=== PATIENT | female | born 1955 | race Caucasian/White ===

== ENCOUNTER → 2017-12-04 14:31 | Outpatient (REF) | payer MEDICAID, SELFPAY ==
[2017-12-04 21:52] LABS: Ferritin 77 ng/mL (8-388); Vitamin B12 929 pg/mL (193-986)
[2017-12-04 21:57] LABS: Folate > 20.0 ng/mL (8.6-20.0)
== END ==
LOC: NCHCN 14:31
PROVIDERS: PCP Physician Assistant Medical; Visit Provider Physician Assistant Medical
DX: D64.9 Anemia, unspecified (principal)
CPT/HCPCS: 82607; 82728; 82746

== ENCOUNTER → 2017-12-13 09:24 | Outpatient (CLI) | payer MEDICAID, SELFPAY ==
[2017-12-13 10:20] LABS: Abs Immature Grans 0.02 k/cumm (0.0-0.09); Absolute Basophil Count 0.02 k/cumm (0.0-0.2); Absolute Lymphocyte Count 2.16 k/cumm (1.2-3.4); Absolute Monocyte Count 0.62 k/cumm (0.11-0.7); Absolute Neutrophil Count 4.48 k/cumm (1.2-6.7); Basophils % 0.3; HCT 35.6 % (36.0-46.0); HGB 11.4 g/dL (12.0-15.5); Immature Grans % 0.3; Lymphocytes % 29.6; Mean Corpuscular Hemoglobin 31.6 pg (27.0-33.0); Mean Corpuscular Volume 98.6 fL (80-95); Mean Platelet Volume 10.8 fL (8.0-11.0); Monocytes % 8.5; Neutrophils % 61.3; Platelet Count 188 x1000/uL (130-400); RBC 3.61 m/cumm (4.00-5.20); RBC Distribution Width 13.5 % (11.7-14.6)
== END ==
PROVIDERS: PCP Physician Assistant Medical; Visit Provider Nurse Practitioner
DX: F20.9 Schizophrenia, unspecified (principal); Z79.899 Other long term (current) drug therapy
CPT/HCPCS: 36415; 85025

== ENCOUNTER 2018-01-03 13:00 | Outpatient (RCR) | payer MEDICAID, SELFPAY ==
--- NOTE | 2017-12-25 15:18 | IE_ITS ---
Date: December 25, 2017 Referring: Joan Nobles PA-C M.D. Diagnosis: neck and back pain P.T. Diagnosis: difficulty changing positions SUBJECTIVE: History of Present Illness: The patient describes herself as a disabled woman due to Schizo Affective Disorder since the early . She states she currently has a very active life. She does [employer] dance and tries to be involved in a book club. She tries to get out and walk as much as possible. She states that years ago she was lifting an air conditioner and injured her back. A couple years later she was painting her ceiling and injured her neck. She has had P.T. and acupuncture for both of these areas, and for the most part has kept it in check. Recently, she is noticing increased pain at both locations. The pain has never completely dissipated. It is located on the right side of the neck, and she has pain on both sides of the back. There does not seem to be any referral associated with either the back or neck pain. No bowel or bladder dysfunction reported. No unexplained weight loss. She has lost 22# due to [employer], and is very encouraged about this. Pain Rating: Currently 6/10 Prior Level of Function: Unrestricted. Current Level of Function: Difficulty moving and changing positions. Difficulty with every day chores. They become a little more labored. Previous Treatment: P.T. and acupuncture. Social: She lives in [place], [place]. Comorbidities: Schizo Affective Disorder, hypo thyroidism and kidney disorder Medications: See patient EMR. Quality of Life: __x__ Excellent Standardized Measures: NDI score: __42%__ OBJECTIVE: Posture: In standing, the patient demonstrates a significant increase in upper thoracic kyphosis and moderate forward head position. Also, noted is scapular protraction bilaterally. Gait: Unremarkable. No evidence of severe antalgia or ataxia. Palpation: She is tender to palpation through the right side of the cervical paraspinals and into the QL bilaterally and lumbar paraspinals bilaterally. A SFMA Top Tier Assessment was completed, dysfunctional non painful patterns with cervical spine motions, UE 1, UE 2 patterns bilaterally, multi segmental rotation, multi segmental extension and multi segmental flexion appears to be functional and non painful. Arms down, deep squat dysfunctional non painful. Single leg stance with eyes closed is dysfunctional non painful. ROM: Multi segmental extension of the spine 25% of normal motion, cervical extension 50% of normal motion, cervical flexion 50% of normal motion, cervical rotation 50% of normal motion, C1/C2 rotation was assessed passively and appears to be within 100% of normal motion indicating a restriction through the lower cervical vertebrae, hip flexion WNL, hip internal and external rotation WNL, and knee extension and flexion WNL. 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 Neuro: Sensation is intact to light touch through upper and lower extremity dermatomes. Motor control appears intact through associated myotomes. Patient demonstrates appropriate proprioception and kinestatic awareness. Special Tests: Lumbar lock test (+) for extension and rotation limitations through the thoracic spine. SLR limited by hamstring extensibility to 45 bilaterally. Josh test (+) bilaterally. Treatment: IE: [id number] x1 Patient Education: I.E. and assessment of functional mobility as well as training in a formal exercise program. The patient demonstrated verbal acknowledgement and technique demonstration. Direct treatment time: 60 minutes Total treatment time: 60 minutes ASSESSMENT: Patient is a 62-year-old female with a history of chronic health conditions affecting her function, referred for PT services with the diagnosis of cervical and back pain. Patient presents with clinical signs and symptoms consistent with mechanical derangement due to movement pattern dysfunction through the thoracic spine, as demonstrated by the following impairment level findings: 1) (+) lumbar lock test with thoracic spine rotation and extension limitations 2) (+) postural abnormalities with increased thoracic kyphosis 3) (+) Josh test 4) (+) SLR for hamstring extensibility issues Impairments are contributing to the following functional limitations: 1) difficulty with every day tasks and activities due to pain Patient is assessed as: __x__ Low 19264 complexity, based on the following: History: (list): Schizo Affective Disorder, hypo thyroid and kidney disorders Examination: (list): (+) thoracic spine restrictions with both extension and rotation, SLR and hamstring extensibility issues, (+) Josh test Presentation: Stable Decision-Making: Low complexity based on the NDI with 42% ____ Patient requires skilled PT intervention to remediate the above functional limitations to return to: __x__ Premorbid level of function Prognosis: __x__ Good As evidence suggest improvement in functional mobility with compliancy to a detailed HEP tailored to her diagnosis and follow through with P.T. intervention. STG: __2__ weeks. 1) patient independent with HEP both verbally and with ideal technique demonstration LTG: __6__ weeks. 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 Treatment to include: Manual therapy - 92525 - enhancing muscle extensibility and improving joint mobility through the thoracic spine Therapeutic exercise - 19557 - providing tactile cues, verbal education and advanced movement corrective for establishing stability and motor control through the core and pelvic girdle influencing more refined body mechanics. Ultrasound (36233) and estim (41818) are available for pain modulation as necessary. The patient will be monitored for compliancy to her HEP, and her status will be updated accordingly. POC will be modified as symptoms dictate. Thank you for this referral. Please do not hesitate to contact me with any questions or concerns regarding this patient's plan of care.
--- NOTE | 2017-12-27 14:39 | PTTR_ITS ---
DATE: 12/27/17 SUBJECTIVE: Caitie stating that she has been doing her exercises that she was given last session. She thinks she is actually more sore than she was before. She is wondering if this is normal. She notes feeling discomfort into the right shoulder, right sided neck and right sided low back. OBJECTIVE: Discussion regarding HEP and appropriate completion. She will continue with her home program and try doing her exercises one time per day for a few days to ease into them. Pt is in agreement with this. Manual therapy: ([id number]). Pt receives flexion based stretching bilateral LE' s. Begin with unloading techniques to the lumbar spine via single and double leg pull. Single knee to chest stretch, hamstring, piriformis stretching. Mulligan SLR applied bilaterally. Perform double knee to chest stretch and lumbar rotation with good tolerance. She receives unloading of her cervical spine and PROM and light stretching into side bend and rotation bilaterally. In prone position PA glides applied to the lumbar and thoracic spine. Therapeutic procedures ([id number]). * X HEP review: Review and progress HEP. 1. Diaphragmatic breathing, 5 breath cycles 2. Diaphragmatic breathing, PPT and Kegel activation 5 breath cycles 3. Diaphragmatic breathing, PPT and Kegel activation with deep neck flexor retraction 5 breath cycles. Performed series of intrinsic stabilization activities here in the clinic and pt was provided with handout with exercises written down for her. She requires verbal and tactile cueing for appropriate completion. Direct treatment time: 30 minutes Total treatment time: 30 minutes Rosy Cano PTA
--- NOTE | 2017-12-30 12:42 | PTTR_ITS ---
DATE: 12/30/17 SUBJECTIVE: Pt states that she is doing ok for the most part. She is trying to do her exercises as faithfully as possible. She would just like them checked. OBJECTIVE: Manual therapy: ([id number]).Pt was re-evaluated in her exercise compliance. Minor modifications noted.She is then placed in prone, where she is mobilized with PA glides through the thoracic spine utilizing grade II distribution of strength initially for mechanoreceptor stimulation.She is then lowered through the cervical spine to incorporate about 20 degrees of cervical flexion, and from this point more aggressive grade III mobilizations are applied through the thoracic spine. She is then mobilized with hip extension coordinated with knee flexion to mobilize the rectus femoris, which she tolerates fairly well, although there is still a 10 in. difference from heel to buttock. Pt was then placed in supine and mobilized through the cervical spine with light oscillatory traction corrected into cervical retraction and then mobilized utilizing sustained natural apophysial glide to end of range rotation bilaterally and light mini arc extensions. STM to the cervical paraspinals at the end of the treatment session. Pt tolerated treatment well. Direct treatment time: 30 min Total treatment time: 30 min direct pt care NELL/tuyet
--- NOTE | 2018-01-03 14:24 | PTTR_ITS ---
DATE: 01/03/18 SUBJECTIVE: Caitie stating that she was sore after last visit. She continues to be sore through her neck and low back. She notes she has been doing her exercises. OBJECTIVE: Manual therapy: ([id number]): Pt in supine position receives unloading of her cervical spine followed by PROM and stretching into sidebending and rotation bilaterally. She tolerates approx. 75% available motion bilaterally. She receives OA release and STM techniques to bilateral upper traps, scalenes, SCM and cervical paraspinals. Tone noted bilateral upper cervical paraspinals and scalenes bilaterally and clear trigger points here. In prone position perform PA glides to the lumbar and thoracic segments and strumming the lumbar paraspinals. She then receives stretching to the quads and hip flexors bilaterally. Ends with moist hot pack in the seated position to the entire back and neck x 10 minutes. Direct treatment time: 30 minutes Total treatment time: 40 minutes Rosy Cano, CLOSING AGENT
== END 2018-01-03 23:59 | disposition home or self-care (01) ==
LOC: PT 13:00
PROVIDERS: PCP Physician Assistant Medical; Referring Provider Physician Assistant Medical; Visit Provider Physician Assistant Medical
DX: M54.2 Cervicalgia (principal); M54.6 Pain in thoracic spine
CPT/HCPCS: 97110; 97140; 97161

== ENCOUNTER → 2018-01-03 14:39 | Outpatient (CLI) | payer MEDICAID, SELFPAY ==
[2018-01-03 15:02] LABS: Abs Immature Grans 0.02 k/cumm (0.0-0.09); Absolute Basophil Count 0.03 k/cumm (0.0-0.2); Absolute Lymphocyte Count 2.28 k/cumm (1.2-3.4); Absolute Monocyte Count 0.39 k/cumm (0.11-0.7); Absolute Neutrophil Count 3.28 k/cumm (1.2-6.7); Basophils % 0.5; HCT 35.8 % (36.0-46.0); HGB 11.6 g/dL (12.0-15.5); Immature Grans % 0.3; Mean Corp. HGB Concentration 32.4 g/dL (32.0-36.0); Mean Corpuscular Hemoglobin 31.8 pg (27.0-33.0); Mean Corpuscular Volume 98.1 fL (80-95); Mean Platelet Volume 10.4 fL (8.0-11.0); Monocytes % 6.5; Neutrophils % 54.7; Platelet Count 171 x1000/uL (130-400); RBC 3.65 m/cumm (4.00-5.20); RBC Distribution Width 13.5 % (11.7-14.6)
== END ==
PROVIDERS: PCP Physician Assistant Medical; Visit Provider Nurse Practitioner
DX: F20.9 Schizophrenia, unspecified (principal); Z79.899 Other long term (current) drug therapy
CPT/HCPCS: 36415; 85025

== ENCOUNTER 2018-01-30 15:16 | Outpatient (CLI) | payer MEDICAID, SELFPAY ==
[2018-01-30 15:33] LABS: Abs Immature Grans 0.01 k/cumm (0.0-0.09); Absolute Basophil Count 0.02 k/cumm (0.0-0.2); Absolute Lymphocyte Count 2.16 k/cumm (1.2-3.4); Absolute Monocyte Count 0.57 k/cumm (0.11-0.7); Absolute Neutrophil Count 4.88 k/cumm (1.2-6.7); Basophils % 0.3; HCT 34.2 % (36.0-46.0); Immature Grans % 0.1; Lymphocytes % 28.3; Mean Corp. HGB Concentration 32.2 g/dL (32.0-36.0); Mean Corpuscular Hemoglobin 31.7 pg (27.0-33.0); Mean Corpuscular Volume 98.6 fL (80-95); Mean Platelet Volume 10.2 fL (8.0-11.0); Monocytes % 7.5; Neutrophils % 63.8; Platelet Count 181 x1000/uL (130-400); RBC 3.47 m/cumm (4.00-5.20); RBC Distribution Width 13.6 % (11.7-14.6); White Blood Cell Count 7.64 k/cumm (4.4-10.8)
== END 2018-01-30 15:36 ==
PROVIDERS: PCP Physician Assistant Medical; Visit Provider Nurse Practitioner
DX: F20.9 Schizophrenia, unspecified (principal); Z79.899 Other long term (current) drug therapy
CPT/HCPCS: 36415; 85025

== ENCOUNTER 2018-02-27 12:37 | Outpatient (CLI) | payer MEDICAID, SELFPAY ==
[2018-02-27 13:02] LABS: Abs Immature Grans 0.01 k/cumm (0.0-0.09); Absolute Basophil Count 0.03 k/cumm (0.0-0.2); Absolute Lymphocyte Count 1.81 k/cumm (1.2-3.4); Absolute Monocyte Count 0.59 k/cumm (0.11-0.7); Absolute Neutrophil Count 3.47 k/cumm (1.2-6.7); Basophils % 0.5; HCT 37.8 % (36.0-46.0); HGB 11.8 g/dL (12.0-15.5); Immature Grans % 0.2; Lymphocytes % 30.6; Mean Corp. HGB Concentration 31.2 g/dL (32.0-36.0); Mean Corpuscular Hemoglobin 30.9 pg (27.0-33.0); Mean Platelet Volume 10.9 fL (8.0-11.0); Neutrophils % 58.7; Platelet Count 175 x1000/uL (130-400); RBC 3.82 m/cumm (4.00-5.20); RBC Distribution Width 13.9 % (11.7-14.6); White Blood Cell Count 5.91 k/cumm (4.4-10.8)
== END 2018-02-27 12:57 ==
PROVIDERS: PCP Physician Assistant Medical; Visit Provider Nurse Practitioner
DX: F20.9 Schizophrenia, unspecified (principal); Z79.899 Other long term (current) drug therapy
CPT/HCPCS: 36415; 85025

== ENCOUNTER 2018-03-25 10:17 | Outpatient (CLI) | payer MEDICAID, SELFPAY ==
[2018-03-25 11:02] LABS: Abs Immature Grans 0.01 k/cumm (0.0-0.09); Absolute Basophil Count 0.03 k/cumm (0.0-0.2); Absolute Lymphocyte Count 1.51 k/cumm (1.2-3.4); Absolute Monocyte Count 0.54 k/cumm (0.11-0.7); Absolute Neutrophil Count 3.59 k/cumm (1.2-6.7); Basophils % 0.5; HCT 37.5 % (36.0-46.0); HGB 11.8 g/dL (12.0-15.5); Immature Grans % 0.2; Lymphocytes % 26.6; Mean Corp. HGB Concentration 31.5 g/dL (32.0-36.0); Mean Corpuscular Hemoglobin 30.7 pg (27.0-33.0); Mean Corpuscular Volume 97.7 fL (80-95); Mean Platelet Volume 11.3 fL (8.0-11.0); Monocytes % 9.5; Neutrophils % 63.2; Platelet Count 162 x1000/uL (130-400); RBC 3.84 m/cumm (4.00-5.20); RBC Distribution Width 13.7 % (11.7-14.6); White Blood Cell Count 5.68 k/cumm (4.4-10.8)
== END 2018-03-25 10:37 ==
PROVIDERS: PCP Nurse Practitioner Family; Visit Provider Nurse Practitioner
DX: F20.9 Schizophrenia, unspecified (principal); Z79.899 Other long term (current) drug therapy
CPT/HCPCS: 36415; 85025

== ENCOUNTER 2018-04-21 14:34 | Outpatient (CLI) | payer MEDICAID, SELFPAY ==
[2018-04-21 14:56] LABS: Abs Immature Grans 0.01 k/cumm (0.0-0.09); Absolute Basophil Count 0.03 k/cumm (0.0-0.2); Absolute Lymphocyte Count 2.19 k/cumm (1.2-3.4); Absolute Monocyte Count 0.42 k/cumm (0.11-0.7); Absolute Neutrophil Count 3.25 k/cumm (1.2-6.7); Basophils % 0.5; HCT 37.4 % (36.0-46.0); HGB 11.9 g/dL (12.0-15.5); Immature Grans % 0.2; Lymphocytes % 37.1; Mean Corp. HGB Concentration 31.8 g/dL (32.0-36.0); Mean Corpuscular Hemoglobin 31.2 pg (27.0-33.0); Mean Corpuscular Volume 97.9 fL (80-95); Mean Platelet Volume 11.2 fL (8.0-11.0); Monocytes % 7.1; Neutrophils % 55.1; Platelet Count 165 x1000/uL (130-400); RBC 3.82 m/cumm (4.00-5.20)
== END 2018-04-21 14:54 ==
PROVIDERS: PCP Nurse Practitioner Family; Visit Provider Nurse Practitioner
DX: F20.9 Schizophrenia, unspecified (principal); Z79.899 Other long term (current) drug therapy
CPT/HCPCS: 36415; 85025

== ENCOUNTER 2018-04-24 14:53 | Outpatient (REF) | payer MEDICAID, SELFPAY ==
[2018-04-24 21:43] LABS: ALT 33 U/L (12-78); AST 17 U/L (15-37); Albumin 3.9 g/dL (3.4-5.0); Alkaline Phosphatase 69 U/L (46-116); Anion Gap 6.4 mmol/L (3-11); BUN 20 mg/dL (7-18); Bilirubin, Total 0.4 mg/dL (0.2-1.0); CO2 32.6 mmol/L (21.0-32.0); CREATININE 1.43 mg/dL (0.55-1.02); Calcium 10.3 mg/dL (8.5-10.1); Chloride 105 mmol/L (98-107); Estimated GFR 36.94 (mL/min/1.73m2); Glucose 125 mg/dL (70-100); Magnesium 2.1 mg/dL (1.8-2.4); Potassium 3.5 mmol/L (3.5-5.1); Sodium 144 mmol/L (136-145); TSH (W/Ref FT4) 0.99 uIU/mL (0.358-3.74); Total Protein 6.6 g/dL (6.4-8.2)
== END 2018-04-24 15:13 ==
LOC: NCHCN 14:53
PROVIDERS: PCP Nurse Practitioner Family; Visit Provider Specialist/Technologist Athletic Trainer
DX: E03.9 Hypothyroidism, unspecified (principal); R94.4 Abnormal results of kidney function studies; Z79.899 Other long term (current) drug therapy
CPT/HCPCS: 80053; 83735; 84443

== ENCOUNTER 2018-05-27 12:47 | Outpatient (CLI) | payer MEDICAID, SELFPAY ==
[2018-05-27 14:03] LABS: Abs Immature Grans 0.01 k/cumm (0.0-0.09); Absolute Basophil Count 0.03 k/cumm (0.0-0.2); Absolute Lymphocyte Count 1.87 k/cumm (1.2-3.4); Absolute Monocyte Count 0.47 k/cumm (0.11-0.7); Absolute Neutrophil Count 3.32 k/cumm (1.2-6.7); Basophils % 0.5; HCT 38.5 % (36.0-46.0); HGB 12.4 g/dL (12.0-15.5); Immature Grans % 0.2; Lymphocytes % 32.8; Mean Corp. HGB Concentration 32.2 g/dL (32.0-36.0); Mean Corpuscular Hemoglobin 31.2 pg (27.0-33.0); Mean Platelet Volume 11.4 fL (8.0-11.0); Monocytes % 8.2; Neutrophils % 58.3; Platelet Count 203 x1000/uL (130-400); RBC 3.97 m/cumm (4.00-5.20); RBC Distribution Width 14.6 % (11.7-14.6)
== END 2018-05-27 13:07 ==
PROVIDERS: PCP Nurse Practitioner Family; Visit Provider Nurse Practitioner
DX: F20.9 Schizophrenia, unspecified (principal); Z79.899 Other long term (current) drug therapy
CPT/HCPCS: 36415; 85025

== ENCOUNTER 2018-06-24 15:15 | Outpatient (CLI) | payer MEDICAID, SELFPAY ==
[2018-06-24 16:06] LABS: Abs Immature Grans 0.01 k/cumm (0.0-0.09); Absolute Basophil Count 0.03 k/cumm (0.0-0.2); Absolute Lymphocyte Count 2.52 k/cumm (1.2-3.4); Absolute Monocyte Count 0.47 k/cumm (0.11-0.7); Basophils % 0.5; HCT 36.3 % (36.0-46.0); HGB 11.6 g/dL (12.0-15.5); Immature Grans % 0.2; Lymphocytes % 38.6; Mean Corpuscular Hemoglobin 30.9 pg (27.0-33.0); Mean Corpuscular Volume 96.8 fL (80-95); Mean Platelet Volume 11.2 fL (8.0-11.0); Monocytes % 7.2; Neutrophils % 53.5; Platelet Count 155 x1000/uL (130-400); RBC 3.75 m/cumm (4.00-5.20); RBC Distribution Width 14.6 % (11.7-14.6); White Blood Cell Count 6.53 k/cumm (4.4-10.8)
== END 2018-06-24 15:35 ==
PROVIDERS: PCP Nurse Practitioner Family; Visit Provider Nurse Practitioner
DX: F20.9 Schizophrenia, unspecified (principal); Z79.899 Other long term (current) drug therapy
CPT/HCPCS: 36415; 85025

== ENCOUNTER 2018-07-02 09:29 | Outpatient (REF) | payer MEDICAID, SELFPAY ==
[2018-07-02 20:38] LABS: Cholesterol 236 mg/dL (50-200); Glucose 117 mg/dL (70-100); HDL Cholesterol 103 mg/dL (40-60); LDL CHOLESTEROL 106 mg/dL (<100); Triglyceride 89 mg/dL (30-150)
== END 2018-07-02 09:49 ==
LOC: NCHCN 09:29
PROVIDERS: PCP Nurse Practitioner Family; Visit Provider Nurse Practitioner Family
DX: E74.39 Other disorders of intestinal carbohydrate absorption (principal); Z00.00 Encounter for general adult medical examination without abnormal findings
CPT/HCPCS: 80061; 82947; 83721

== ENCOUNTER 2018-07-14 00:41 | Outpatient (CLI) | payer MEDICAID, SELFPAY ==
--- NOTE | 2018-07-14 17:42 | DI.MAMMO_ITS ---
SYMPTOM/DIAGNOSIS: MAMMOGRAMS: Mammograms were interpreted according to the usual protocol including computer analysis with CAD system, tomosynthesis and C view imaging. Comparison with prior examinations. Breast density B. No suspicious masses or microcalcifications are seen. There is no definite evidence of malignancy. IMPRESSION: Negative mammogram. Routine screening is recommended. Category I. MQSA ASSESSMENT OF FINDINGS: Negative. Category 1. Patient will receive a letter notifying them of these results. BI-RADS category B. There are scattered areas of fibroglandular density.
== END 2018-07-14 01:01 ==
PROVIDERS: PCP Nurse Practitioner Family; Visit Provider Nurse Practitioner Family
DX: Z12.31 Encounter for screening mammogram for malignant neoplasm of breast (principal)
CPT/HCPCS: 77063; 77067

== ENCOUNTER 2018-07-22 11:55 | Outpatient (CLI) | payer MEDICAID, SELFPAY ==
[2018-07-22 12:36] LABS: Abs Immature Grans 0.03 k/cumm (0.0-0.09); Absolute Basophil Count 0.02 k/cumm (0.0-0.2); Absolute Lymphocyte Count 2.31 k/cumm (1.2-3.4); Absolute Monocyte Count 0.54 k/cumm (0.11-0.7); Absolute Neutrophil Count 2.91 k/cumm (1.2-6.7); Basophils % 0.3; HCT 37.5 % (36.0-46.0); HGB 12.2 g/dL (12.0-15.5); Immature Grans % 0.5; Lymphocytes % 39.8; Mean Corp. HGB Concentration 32.5 g/dL (32.0-36.0); Mean Corpuscular Hemoglobin 31.2 pg (27.0-33.0); Mean Corpuscular Volume 95.9 fL (80-95); Mean Platelet Volume 10.9 fL (8.0-11.0); Monocytes % 9.3; Neutrophils % 50.1; Platelet Count 188 x1000/uL (130-400); RBC 3.91 m/cumm (4.00-5.20); RBC Distribution Width 14.2 % (11.7-14.6); White Blood Cell Count 5.81 k/cumm (4.4-10.8)
[2018-07-22 13:35] LABS: ALT 27 U/L (12-78); AST 22 U/L (15-37); Albumin 4.1 g/dL (3.4-5.0); Alkaline Phosphatase 83 U/L (46-116); Anion Gap 7.2 mmol/L (3-11); BUN 17 mg/dL (7-18); Bilirubin, Direct 0.13 mg/dL (0.00-0.20); Bilirubin, Total 0.5 mg/dL (0.2-1.0); CO2 29.8 mmol/L (21.0-32.0); CREATININE 1.21 mg/dL (0.55-1.02); Calcium 9.5 mg/dL (8.5-10.1); Chloride 101 mmol/L (98-107); Glucose 96 mg/dL (70-100); Potassium 3.9 mmol/L (3.5-5.1); Sodium 138 mmol/L (136-145); TSH 2.23 uIU/mL (0.358-3.74); Total Protein 6.8 g/dL (6.4-8.2)
[2018-07-22 13:52] LABS: Cholesterol 221 mg/dL (50-200); HDL Cholesterol 95 mg/dL (40-60); LDL CHOLESTEROL 103 mg/dL (<100); Triglyceride 96 mg/dL (30-150)
== END 2018-07-22 12:15 ==
PROVIDERS: PCP Nurse Practitioner Family; Visit Provider Nurse Practitioner
DX: F20.9 Schizophrenia, unspecified (principal); Z79.899 Other long term (current) drug therapy
CPT/HCPCS: 36415; 80048; 80061; 80076; 83721; 84443; 85025

== ENCOUNTER 2018-08-04 14:34 | Outpatient (REF) | payer MEDICAID, SELFPAY ==
--- NOTE | 2018-08-04 14:00 | PAPFT_PTH ---
PATIENT: Caitie Noel LOC: [facility] U#:[id number] AGE/SX: 62/F ROOM: RE08/04/[address]: Deirdre Faustin : 1955 BED: DIS: 08/04/2018 SPEC #: [id number] RECD: 08/05/18 12:57 STATUS: TIEN REAlbaro #: [id number] RAMAN: 08/04/18 14:[address]: Deirdre Faustin DEPT: [facility] Cytology RECD BY: Kelli Kearns Tissues: 1 - CX/ENDOCX FOR PAP SMEARS Procedures: PAP THIN PREP/UVM Screening HPV DNA PROBE Comments: [id number]
== END 2018-08-04 14:54 ==
LOC: NCHCN 14:34
PROVIDERS: PCP Nurse Practitioner Family; Visit Provider Nurse Practitioner Family
DX: Z12.4 Encounter for screening for malignant neoplasm of cervix (principal); Z11.51 Encounter for screening for human papillomavirus (HPV); Z01.419 Encounter for gynecological examination (general) (routine) without abnormal findings
CPT/HCPCS: 88142; 87624

== ENCOUNTER 2018-08-20 13:23 | Outpatient (CLI) | payer MEDICAID, SELFPAY ==
[2018-08-20 14:35] LABS: Abs Immature Grans 0.01 k/cumm (0.0-0.09); Absolute Basophil Count 0.04 k/cumm (0.0-0.2); Absolute Lymphocyte Count 2.01 k/cumm (1.2-3.4); Absolute Monocyte Count 0.53 k/cumm (0.11-0.7); Absolute Neutrophil Count 3.01 k/cumm (1.2-6.7); Basophils % 0.7; HCT 36.8 % (36.0-46.0); HGB 11.6 g/dL (12.0-15.5); Immature Grans % 0.2; Lymphocytes % 35.9; Mean Corp. HGB Concentration 31.5 g/dL (32.0-36.0); Mean Corpuscular Hemoglobin 30.7 pg (27.0-33.0); Mean Corpuscular Volume 97.4 fL (80-95); Mean Platelet Volume 11.2 fL (8.0-11.0); Monocytes % 9.5; Neutrophils % 53.7; Platelet Count 166 x1000/uL (130-400); RBC 3.78 m/cumm (4.00-5.20); RBC Distribution Width 14.3 % (11.7-14.6)
== END 2018-08-20 13:43 ==
PROVIDERS: PCP Nurse Practitioner Family; Visit Provider Nurse Practitioner
DX: F20.9 Schizophrenia, unspecified (principal); Z79.899 Other long term (current) drug therapy
CPT/HCPCS: 36415; 85025

== ENCOUNTER 2018-09-11 00:38 | Outpatient (CLI) | payer MEDICAID, SELFPAY ==
--- NOTE | 2018-09-11 13:00 | ETT_ITS ---
*[facility]* *[facility]* [address] [place] [address] Stress Electrocardiography Tony protocol Date of study: 09/11/2018 *PATIENT PRESENTATION* Height: 170.2cm (67in) Blood Pressure: Weight: 62.3kg (137lb) BSA: 1.72m^2 Referring physician: Patti Mercedes V Ordering physician: Deirdre Faustin Impressions: Indeterminate stress test. Specificity of this study is limited due to baseline ECG abnormalities. Summary: 1. Stress ECG conclusions: The stress ECG is indeterminate due to baseline ST/T wave abnormality. The specificity of this test is limited by resting ECG abnormalities. 2. Stress: There is a normal resting blood pressure with a hypertensive response to stress. Stress-induced atypical chest pain. Exercise capacity is mildly diminished for age. 3. Baseline ECG: NO PREVIOUS EKG FOR COMPARISON. TODAY'S EKG- SINUS RHYTHM, T WAVE ABNORMALITIES, ANTERIOR LEADS. Indication: R07.89. History: Patient's presenting symptoms: asymptomatic. REASON FOR VISIT: PATIENT REPORTS INTERMITTENT 7/10 STERNAL CHEST PRESSURE, OCCURING EVERY COUPLE MONTHS. CHEST PRESSURE OCCURS AT REST, LASTS 15 MIUTES IN DURATION, AND RESOLVES WITHOUT INTERVENTION. OF NOTE, PATIENT TODAY REPORTS MINIMAL DIZZINESS SINCE WAKING UP. DIZZINESS OCCURS EVERY COUPLE DAYS WITH VARIABLE DURATION. PATIENT ALSO REPORTS AN INCREASE IN EMOTIONAL STRESS IN RECENT MONTHS. PAST MEDICAL HISTORY: ORTHOSTATIC HYPOTENSION DUE TO PARKINSON'S DISEASE, DIZZINESS, HYPOTHYROIDISM, RENAL INSUFFICIENCY, TACHYCARDIA, SCHIZOAFFECTIVE DISORDER, PERSONALITY DISORDER, BACK AND NECK PAIN, OVERACTIVE BLADDER, FAMILY HISTORY: FATHER (MYOCARDIAL INFARCTION, CHF). SMOKING STATUS: 25 PPD SMOKING HISTORY, QUIT 20 YEARS AGO. EXERCISE ROUTINE: PHYSICAL THERAPY 3X/WEEK, YOGA 1X/WEEK. Risk factors: Family history of coronary artery disease. Dyslipidemia. Cholesterol: 221mg/dl. HDL: 95mg/dl. LDL: 103mg/dl. Triglycerides: 96mg/dl. ALLERGIES: MIRABEGRON MEDICATIONS: CLOZAPINE 400MG, DAILY. DARIFENACIN 15MG, DAILY. DIPHENHYDRAMINE-ACETAMINOPHEN 1 EACH, BEDTIME. FESOTERODINE 8MG, DAILY. FLUDROCORTISONE 0.1MG, DAILY. LAMOTRIGINE 200MG, DAILY. LEVOTHYROXINE 75MCG, DAILY. MELATONIN 6MG, DAILY. MULTIVITAMIN, DAILY. PEPPERMINT OIL, DAILY. SELENIUM 100MCG, DAILY. Protocol: Tony protocol. Baseline ECG: NO PREVIOUS EKG FOR COMPARISON. TODAY'S EKG- SINUS RHYTHM, T WAVE ABNORMALITIES, ANTERIOR LEADS. Stress protocol: + +---+ +----+ !Stage !HR !BP (mmHg) !Sat ! + +---+ +----+ !Baseline supine !94 !148/88 (108)!----! + +---+ +----+ !Baseline standing !98 !120/80 (93) !100%! + +---+ +----+ !Stage I; 1.7mph, 10degrees; 3 min!135!170/90 (117)!92% ! + +---+ +----+ !Recovery; 1 min !120!150/48 (82) !----! + +---+ +----+ !Recovery; 3 min !112!150/70 (97) !----! + +---+ +----+ !Recovery; 6 min !101!160/80 (107)!----! + +---+ +----+ !Recovery; 9 min !98 !150/70 (97) !----! + +---+ +----+ * Stress results: Maximal heart rate during stress was 135bpm (87% of maximal predicted heart rate). The maximal predicted heart rate was 156bpm. There is a normal resting blood pressure with a hypertensive response to stress. The rate-pressure product for the peak heart rate and blood pressure was 22288kr Hg/min. Stress-induced atypical chest pain. Exercise capacity is mildly diminished for age. Stress ECG: EXCERCISE TESTING ENDED IN 3 MINS, 1 SECS DUE TO FATIGUE AND ANXIETY, MAX HR WAS 135, 86% OF TARGET. HYPERTENSIVE BLOOD PRESSURE REPONSE. METS: 4.65 ECTOPY: NONE NOTED. ANGINA: PT REPORTED 3/10 MID CHEST PRESSURE IN THE FIRST STAGE OF TESTING, 0/10 BY 3 MINS OF RECOVERY. ISCHEMIA: NO ISCHEMIC CHANGES NOTED. FUNCTIONAL CAPACITY: MILDLY DIMINISHED CAPACITY. The stress ECG is indeterminate due to baseline ST/T wave abnormality. The specificity of this test is limited by resting ECG abnormalities. Study data: Carolina Womack MD supervised and was readily available during the procedure. This study was interpreted by [facility]. Study status: Routine. Consent: The risks, benefits, and alternatives to the procedure were explained to the patient and informed consent was obtained. Procedure: Initial setup. A baseline ECG was recorded. Surface ECG leads and manual cuff blood pressure measurements were monitored. Heart sounds: Normal. Lung sounds: Normal. Treadmill exercise testing was performed using the Tony protocol. Study completion: The patient tolerated the procedure well and was discharged from the lab. Discharge: The patient left the laboratory in stable condition. Birthdate: Patient birthdate: 1955. Sex: Gender: female. Study date: Study date: 09/11/2018. Study time: 00:01 AM. Signature Documentation: The Stress ECG portion of this study was interpreted by Carolina Womack MD. Electronically signed by Carolina Womack 09/11/2018 11:33
== END 2018-09-11 00:58 ==
PROVIDERS: PCP Nurse Practitioner Family; Visit Provider Nurse Practitioner Family
DX: R07.89 Other chest pain (principal); R94.31 Abnormal electrocardiogram [ECG] [EKG]; R42 Dizziness and giddiness; R00.0 Tachycardia, unspecified; I95.1 Orthostatic hypotension; G20 Parkinson's disease; E03.9 Hypothyroidism, unspecified
CPT/HCPCS: 93017

== ENCOUNTER 2018-09-16 14:11 | Outpatient (CLI) | payer MEDICAID, SELFPAY ==
[2018-09-16 14:44] LABS: Abs Immature Grans 0.01 k/cumm (0.0-0.09); Absolute Basophil Count 0.04 k/cumm (0.0-0.2); Absolute Lymphocyte Count 2.34 k/cumm (1.2-3.4); Absolute Monocyte Count 0.52 k/cumm (0.11-0.7); Absolute Neutrophil Count 4.02 k/cumm (1.2-6.7); Basophils % 0.6; HCT 39.3 % (36.0-46.0); Immature Grans % 0.1; Lymphocytes % 33.8; Mean Corp. HGB Concentration 33.1 g/dL (32.0-36.0); Mean Corpuscular Hemoglobin 31.8 pg (27.0-33.0); Mean Corpuscular Volume 96.1 fL (80-95); Monocytes % 7.5; Platelet Count 157 x1000/uL (130-400); RBC 4.09 m/cumm (4.00-5.20); RBC Distribution Width 14.1 % (11.7-14.6); White Blood Cell Count 6.93 k/cumm (4.4-10.8)
== END 2018-09-16 14:31 ==
PROVIDERS: PCP Nurse Practitioner Family; Visit Provider Nurse Practitioner
DX: F20.9 Schizophrenia, unspecified (principal); Z79.899 Other long term (current) drug therapy
CPT/HCPCS: 36415; 85025

== ENCOUNTER 2018-09-23 12:55 | Outpatient (CLI) | payer MEDICAID, SELFPAY ==
--- NOTE | 2018-09-23 13:30 | SATEXT_ITS ---
Assessment: Caitie presents for nutritional counseling for prediabetes. She is 65 and is 137 lbs. She has lost weight from 159 lbs in an effort to control her prediabetes. Her BMI is 21.6 kg/m2 which is on the low end of normal. She goes to the gym 3 days per week, she does yoga once per week, she does weights. Caitie eats whole grains, fruits, vegetables, low fat dairy, fish. Nutritional Diagnosis: None at this time Intervention: Acknowledged her excellent work towards managing her prediabetes. Encouraged Caitie to continue what she is doing and keep up her excellent work. Monitoring and Evaluation: 1. Caitie will self monitor her progress. 2. Caitie will evaluate her nutrition care plan and will contact me for follow up if she feels she needs to. Total time face to face with patient was 25 minutes. Thank you for the referral.
== END 2018-09-23 13:15 ==
PROVIDERS: PCP Nurse Practitioner Family; Visit Provider Dietitian, Registered
DX: E74.39 Other disorders of intestinal carbohydrate absorption (principal); Z71.3 Dietary counseling and surveillance
CPT/HCPCS: 97802

== ENCOUNTER 2018-09-24 00:20 | Outpatient (CLI) | payer MEDICAID, SELFPAY ==
--- NOTE | 2018-09-24 08:45 | MERGEMPI_ITS ---
*[facility]* *[facility]* [address] [place] [address] Myocardial Perfusion Imaging - SPECT Tony protocol Date of study: 09/24/2018 *PATIENT PRESENTATION* Height: 170.2cm (67in) Blood Pressure: Weight: 60.9kg (134lb) BSA: 1.69m^2 Referring physician: Deirdre Faustin Ordering physician: Deirdre Faustin Impressions: - Normal perfusion by Tc99m Sestamibi Imaging. - Low normal LVEF. Summary: 1. Myocardial perfusion imaging: Left ventricular size is normal. No myocardial perfusion defects noted. 2. The calculated left ventricular ejection fraction after stress: 46%. LV global systolic function is low normal. No left ventricular regional motion abnormality. 3. Stress ECG conclusions: The stress ECG is indeterminate due to baseline ST/T wave abnormality. 4. Stress: The target heart rate was not achieved. Switched to Regadenosone stress. Indication: R94.39. History: REASON FOR TESTING: FOR THE LAST FEW YEARS PATIENT REPORTS HAVING MIDSTERNAL CHEST PRESSURE 5/10 FOR APPROXIMATELY 5 TO 15 MINUTES PER EPISODE. THESE EPISODES HAPPEN APPROXIMATELY 6 TIMES PER YEAR. THE CHEST PRESSURE IS NOT COORELATED TO REST OR ACTIVITY OR WITH ANY OTHER SYMPTOMS. PATIENT DENIES CHEST PRESSURE/PAIN UPON ARRIVAL TO TESTING TODAY. SIGNIFICANT PAST MEDICAL HISTORY: ATYPICAL CHEST PAIN, ORTHOSTATIC HYPOTENSION D/T PARKINSON'S DISEASE, DIZZYNESS, HYPOTHYROIDISM, RENAL INSUFFICIENCY, TACHYCARDIA, SCHIZOAFFECTIVE DISORDER, PERSONALITY DISORDER, BACK AND NECK PAIN, OVERACTIVE BLADDER. SMOKING STATUS: QUIT 1988. SMOKED 1 PPD. EXERCISE ROUTINE: YOGA ON TUESDAYS, GOES TO GYM 3 DAYS A WEEK FOR 45 MINUTES. Risk factors: Family history of coronary artery disease. Dyslipidemia. Cholesterol: 221mg/dl. HDL: 95mg/dl. LDL: 103mg/dl. Triglycerides: 96mg/dl. ALLERGIES: MYRBETIQ. MEDICATIONS: SELENIUM 100 MCG DAILY, MIRALAX 17 GRAMS DAILY, PEPPERMINT OIL DAILY, MULIVITAMIN DAILY, MULTIVITAMIN (HAIR, SKIN AND NAILS) DAILY, MELATONIN 6 MG HS, LEVOTHYROXINE 75 MCG DAILY, LAMICTAL 200 MG DAILY, FLUDROCORTISONE 0.1 MG DAILY, FESOTERODINE 8 MG DAILY, ACETAMINOPHEN 650 MG HS, DARIFENACIN 15 MG DAILY, CLOAZPINE 400 DAILY. Imaging Technique: Protocol: Tony protocol. Acquisition: Gated SPECT; 1 day - rest/stress. The patient was imaged in the supine position. Attenuation correction used. Isotope administration: - Rest. Tc[99m]-sestamibi. Dose: 10.3mCi. Injection time: 08:50 AM. Injection to stress time: 00:45. - Stress. Tc[99m]-sestamibi. Dose: 31.3mCi. Injection time: 11:15 AM. 1-2 min before end of exercise Baseline ECG: SINUS RHYTHM . HR 84 BPM. INVERTED T WAVES IN V4, V5, AND V6 LEADS AT BASELINE. Stress protocol: + +---+ + + !Stage !HR !BP (mmHg) !Comments ! + +---+ + + !Baseline supine !84 !168/86 (113)! ! + +---+ + + !Baseline standing !100!122/74 (90) ! ! + +---+ + + !Immediate post stress!---!92/51 (65) ! ! + +---+ + + !1 min !---! !Inject Regadenoson.! + +---+ + + !3 min !107!136/64 (88) ! ! + +---+ + + !6 min !103!136/68 (91) ! ! + +---+ + + !9 min !101!132/70 (91) ! ! + +---+ + + * Stress results: STRESS TEST ENDED IN 6 MINUTES 19 SECONDS DUE TO SOB. NORMAL HEART RATE AND BLOOD PRESSURE TO EXERCISE. MAX HEART RATE: 122 78 % OF TARGET HEART RATE ACHIEVED. MET'S: 5.03 NO ECTOPY. NO ANGINA. NO ST SEGMENT CHANGES. OF NOTE INVERTED T WAVES IN V4, V5, AND V6 LEADS AT BASELINE AND REMAINED UNCHANGED THROUGHTOUT THE TEST. TRANSITIONED TO LEXISCAN STRESS TEST DUE TO SOB AND UNABLE TO ACHEIVE 85% OF TARGET HEART RATE. LEXISCAN STRESS TEST ENDED IN 12 MINUTES 45 SECONDS. NORMAL HEART RATE AND BLOOD PRESSURE RESPONSE TO LEXISCAN INJECTION. NO ECTOPY. OF NOTE INVERTED T WAVES IN V4, V5, AND V6 LEADS AT BASELINE AND REMAINED UNCHANGED THROUGHTOUT THE TEST. CHEST PRESSURE 8/10 AT 1 MINUTE POST LEXISCAN INJECTION. CHEST PRESSURE 7/10 AT 3 MINUTES POST LEXISCAN INJECTION. CHEST PRESSURE 5/10 AT 6 MINUTES POST LEXISCAN INJECTION. CHEST PRESSURE 3/10 AT 9 MINUTES POST LEXISCAN INJECTION. CHEST PRESSURE RESOLVED AT 12 MINUTES POST LEXISCAN INJECTION. NO SIGNIFICANT ST SEGMENT CHANGES. Maximal heart rate during stress was 122bpm (78% of maximal predicted heart rate). The maximal predicted heart rate was 156bpm. The target heart rate was not achieved. The rate-pressure product for the peak heart rate and blood pressure was 47913xz Hg/min. Stress ECG: The stress ECG is indeterminate due to baseline ST/T wave abnormality. Myocardial perfusion: Imaging information: gated. Left ventricular size is normal. No myocardial perfusion defects noted. Ventricular Function (Wall Motion): The calculated left ventricular ejection fraction after stress: 46%. LV global systolic function is low normal. No left ventricular regional motion abnormality. Study data: Carolina Womack MD supervised and was readily available during the procedure. This study was interpreted by [facility]. Study status: Routine. Consent: The risks, benefits, and alternatives to the procedure were explained to the patient and informed consent was obtained. Procedure: Initial setup. A baseline ECG was recorded. Surface ECG leads and manual cuff blood pressure measurements were monitored. Heart sounds: Normal. Lung sounds: Normal. Treadmill exercise testing was performed using the Tony protocol. Study completion: All catheters inserted during the procedure were removed. The patient tolerated the procedure well and was discharged from the lab. Discharge: The patient left the laboratory in stable condition. Birthdate: Patient birthdate: 1955. Sex: Gender: female. Study date: Study date: 09/24/2018. Study time: 00:01 AM. Signature Documentation: - The imaging portion of this study was interpreted by [employer] Carolina Womack MD. - The Stress ECG portion of this study was interpreted by Carolina Womack MD. Electronically signed by Carolina Womack 09/24/2018 17:25
[2018-09-24] MEDS: Regadenoson 0.4 MG/5 ML SYR IVP (11:00)
== END 2018-09-24 00:40 ==
PROVIDERS: PCP Nurse Practitioner Family; Visit Provider Nurse Practitioner Family
DX: R07.89 Other chest pain (principal); R94.31 Abnormal electrocardiogram [ECG] [EKG]; E03.9 Hypothyroidism, unspecified; I95.1 Orthostatic hypotension; G20 Parkinson's disease; Z82.49 Family history of ischemic heart disease and other diseases of the circulatory system; Z87.891 Personal history of nicotine dependence
CPT/HCPCS: 78452; 93017; J2785

== ENCOUNTER 2018-10-08 15:03 | Outpatient (CLI) | payer MEDICAID, SELFPAY ==
[2018-10-08 15:50] LABS: Abs Immature Grans 0.01 k/cumm (0.0-0.09); Absolute Basophil Count 0.03 k/cumm (0.0-0.2); Absolute Lymphocyte Count 2.49 k/cumm (1.2-3.4); Absolute Monocyte Count 0.51 k/cumm (0.11-0.7); Absolute Neutrophil Count 3.01 k/cumm (1.2-6.7); Basophils % 0.5; HCT 36.9 % (36.0-46.0); HGB 11.8 g/dL (12.0-15.5); Immature Grans % 0.2; Lymphocytes % 41.2; Mean Corpuscular Hemoglobin 30.7 pg (27.0-33.0); Mean Corpuscular Volume 96.1 fL (80-95); Mean Platelet Volume 10.6 fL (8.0-11.0); Monocytes % 8.4; Neutrophils % 49.7; Platelet Count 185 x1000/uL (130-400); RBC 3.84 m/cumm (4.00-5.20); RBC Distribution Width 14.4 % (11.7-14.6); White Blood Cell Count 6.05 k/cumm (4.4-10.8)
== END 2018-10-08 15:23 ==
PROVIDERS: PCP Nurse Practitioner Family; Visit Provider Nurse Practitioner
DX: F20.9 Schizophrenia, unspecified (principal)
CPT/HCPCS: 36415; 85025

== ENCOUNTER 2018-11-05 15:26 | Outpatient (CLI) | payer MEDICARE, MEDICAID, SELFPAY ==
[2018-11-05 16:12] LABS: Abs Immature Grans 0.01 k/cumm (0.0-0.09); Absolute Basophil Count 0.03 k/cumm (0.0-0.2); Absolute Lymphocyte Count 2.36 k/cumm (1.2-3.4); Absolute Neutrophil Count 2.58 k/cumm (1.2-6.7); Basophils % 0.6; HCT 37.3 % (36.0-46.0); HGB 11.9 g/dL (12.0-15.5); Immature Grans % 0.2; Lymphocytes % 43.9; Mean Corp. HGB Concentration 31.9 g/dL (32.0-36.0); Mean Corpuscular Hemoglobin 30.7 pg (27.0-33.0); Mean Corpuscular Volume 96.1 fL (80-95); Mean Platelet Volume 11.3 fL (8.0-11.0); Monocytes % 7.4; Neutrophils % 47.9; Platelet Count 172 x1000/uL (130-400); RBC 3.88 m/cumm (4.00-5.20); RBC Distribution Width 14.7 % (11.7-14.6); White Blood Cell Count 5.38 k/cumm (4.4-10.8)
== END 2018-11-05 15:46 ==
PROVIDERS: PCP Nurse Practitioner Family; Visit Provider Nurse Practitioner
DX: F20.9 Schizophrenia, unspecified (principal); Z79.899 Other long term (current) drug therapy
CPT/HCPCS: 36415; 85025

== ENCOUNTER 2018-12-03 15:18 | Outpatient (CLI) | payer MEDICARE, MEDICAID, SELFPAY ==
[2018-12-03 16:00] LABS: Abs Immature Grans 0.02 k/cumm (0.0-0.09); Absolute Basophil Count 0.02 k/cumm (0.0-0.2); Absolute Lymphocyte Count 2.23 k/cumm (1.2-3.4); Absolute Monocyte Count 0.58 k/cumm (0.11-0.7); Basophils % 0.3; HCT 38.1 % (36.0-46.0); HGB 12.2 g/dL (12.0-15.5); Immature Grans % 0.3; Lymphocytes % 38.8; Mean Corpuscular Hemoglobin 30.9 pg (27.0-33.0); Mean Corpuscular Volume 96.5 fL (80-95); Mean Platelet Volume 11.2 fL (8.0-11.0); Monocytes % 10.1; Neutrophils % 50.5; Platelet Count 154 x1000/uL (130-400); RBC 3.95 m/cumm (4.00-5.20); RBC Distribution Width 14.3 % (11.7-14.6); White Blood Cell Count 5.75 k/cumm (4.4-10.8)
== END 2018-12-03 15:38 ==
PROVIDERS: PCP Nurse Practitioner Family; Visit Provider Nurse Practitioner Family
DX: F20.9 Schizophrenia, unspecified (principal); Z79.899 Other long term (current) drug therapy
CPT/HCPCS: 36415; 85025

== ENCOUNTER 2018-12-24 14:19 | Outpatient (CLI) | payer MEDICARE, MEDICAID, SELFPAY ==
[2018-12-24 15:25] LABS: Abs Immature Grans 0.02 k/cumm (0.0-0.09); Absolute Basophil Count 0.03 k/cumm (0.0-0.2); Absolute Lymphocyte Count 2.15 k/cumm (1.2-3.4); Absolute Monocyte Count 0.51 k/cumm (0.11-0.7); Basophils % 0.5; HCT 37.7 % (36.0-46.0); HGB 12.1 g/dL (12.0-15.5); Immature Grans % 0.3; Lymphocytes % 33.5; Mean Corp. HGB Concentration 32.1 g/dL (32.0-36.0); Mean Corpuscular Hemoglobin 31.1 pg (27.0-33.0); Mean Corpuscular Volume 96.9 fL (80-95); Mean Platelet Volume 10.9 fL (8.0-11.0); Neutrophils % 57.7; Platelet Count 177 x1000/uL (130-400); RBC 3.89 m/cumm (4.00-5.20); RBC Distribution Width 14.3 % (11.7-14.6); White Blood Cell Count 6.41 k/cumm (4.4-10.8)
== END 2018-12-24 14:39 ==
PROVIDERS: PCP Nurse Practitioner Family; Visit Provider Nurse Practitioner Family
DX: F20.9 Schizophrenia, unspecified (principal); Z79.899 Other long term (current) drug therapy
CPT/HCPCS: 36415; 85025

== ENCOUNTER 2019-01-20 14:38 | Outpatient (CLI) | payer MEDICARE, MEDICAID, SELFPAY ==
[2019-01-20 15:11] LABS: Abs Immature Grans 0.02 k/cumm (0.0-0.09); Absolute Basophil Count 0.02 k/cumm (0.0-0.2); Absolute Lymphocyte Count 1.81 k/cumm (1.2-3.4); Absolute Neutrophil Count 4.82 k/cumm (1.2-6.7); Basophils % 0.3; HCT 37.6 % (36.0-46.0); HGB 11.9 g/dL (12.0-15.5); Immature Grans % 0.3; Lymphocytes % 25.6; Mean Corp. HGB Concentration 31.6 g/dL (32.0-36.0); Mean Corpuscular Hemoglobin 30.9 pg (27.0-33.0); Mean Corpuscular Volume 97.7 fL (80-95); Mean Platelet Volume 11.1 fL (8.0-11.0); Monocytes % 5.7; Neutrophils % 68.1; Platelet Count 162 x1000/uL (130-400); RBC 3.85 m/cumm (4.00-5.20); RBC Distribution Width 14.4 % (11.7-14.6); White Blood Cell Count 7.07 k/cumm (4.4-10.8)
== END 2019-01-20 14:58 ==
PROVIDERS: PCP Nurse Practitioner Family; Visit Provider Nurse Practitioner Family
DX: F20.9 Schizophrenia, unspecified (principal); Z79.899 Other long term (current) drug therapy
CPT/HCPCS: 36415; 85025

== ENCOUNTER 2019-02-16 15:10 | Outpatient (CLI) | payer MEDICARE, MEDICAID, SELFPAY ==
[2019-02-16 15:29] LABS: Abs Immature Grans 0.01 k/cumm (0.0-0.09); Absolute Basophil Count 0.04 k/cumm (0.0-0.2); Absolute Lymphocyte Count 2.31 k/cumm (1.2-3.4); Absolute Monocyte Count 0.43 k/cumm (0.11-0.7); Basophils % 0.6; HCT 37.6 % (36.0-46.0); HGB 12.2 g/dL (12.0-15.5); Immature Grans % 0.2; Lymphocytes % 37.3; Mean Corp. HGB Concentration 32.4 g/dL (32.0-36.0); Mean Corpuscular Hemoglobin 31.2 pg (27.0-33.0); Mean Corpuscular Volume 96.2 fL (80-95); Mean Platelet Volume 10.8 fL (8.0-11.0); Monocytes % 6.9; Platelet Count 154 x1000/uL (130-400); RBC 3.91 m/cumm (4.00-5.20); RBC Distribution Width 14.1 % (11.7-14.6); White Blood Cell Count 6.19 k/cumm (4.4-10.8)
== END 2019-02-16 15:30 ==
PROVIDERS: PCP Nurse Practitioner Family; Visit Provider Nurse Practitioner Family
DX: F20.9 Schizophrenia, unspecified (principal); Z79.899 Other long term (current) drug therapy
CPT/HCPCS: 36415; 85025

== ENCOUNTER 2019-03-16 15:32 | Outpatient (CLI) | payer MEDICARE, MEDICAID, SELFPAY ==
[2019-03-16 16:09] LABS: Abs Immature Grans 0.01 k/cumm (0.0-0.09); Absolute Basophil Count 0.03 k/cumm (0.0-0.2); Absolute Lymphocyte Count 2.49 k/cumm (1.2-3.4); Absolute Monocyte Count 0.57 k/cumm (0.11-0.7); Absolute Neutrophil Count 2.78 k/cumm (1.2-6.7); Basophils % 0.5; HCT 37.1 % (36.0-46.0); HGB 11.7 g/dL (12.0-15.5); Immature Grans % 0.2; Lymphocytes % 42.3; Mean Corp. HGB Concentration 31.5 g/dL (32.0-36.0); Mean Corpuscular Hemoglobin 30.5 pg (27.0-33.0); Mean Corpuscular Volume 96.6 fL (80-95); Mean Platelet Volume 11.2 fL (8.0-11.0); Monocytes % 9.7; Neutrophils % 47.3; Platelet Count 175 x1000/uL (130-400); RBC 3.84 m/cumm (4.00-5.20); RBC Distribution Width 14.1 % (11.7-14.6); White Blood Cell Count 5.88 k/cumm (4.4-10.8)
== END 2019-03-16 15:52 ==
PROVIDERS: PCP Nurse Practitioner Family; Visit Provider Nurse Practitioner Family
DX: F20.9 Schizophrenia, unspecified (principal); Z79.899 Other long term (current) drug therapy
CPT/HCPCS: 36415; 85025

== ENCOUNTER 2019-04-14 16:29 | Outpatient (CLI) | payer MEDICARE, MEDICAID, SELFPAY ==
[2019-04-14 17:20] LABS: Anion Gap 5.2 mmol/L (3-11); BUN 22 mg/dL (7-18); CO2 33.8 mmol/L (21.0-32.0); CREATININE 1.48 mg/dL (0.55-1.02); Calcium 10.3 mg/dL (8.5-10.1); Chloride 104 mmol/L (98-107); Estimated GFR 35.39 (mL/min/1.73m2); Glucose 90 mg/dL (74-106); Sodium 143 mmol/L (136-145)
[2019-04-14 17:25] LABS: Abs Immature Grans 0.01 k/cumm (0.0-0.09); Absolute Basophil Count 0.03 k/cumm (0.0-0.2); Absolute Lymphocyte Count 2.55 k/cumm (1.2-3.4); Absolute Monocyte Count 0.56 k/cumm (0.11-0.7); Absolute Neutrophil Count 3.09 k/cumm (1.2-6.7); Basophils % 0.5; HCT 37.5 % (36.0-46.0); HGB 12.2 g/dL (12.0-15.5); Immature Grans % 0.2; Lymphocytes % 40.9; Mean Corp. HGB Concentration 32.5 g/dL (32.0-36.0); Mean Corpuscular Hemoglobin 31.4 pg (27.0-33.0); Mean Corpuscular Volume 96.4 fL (80-95); Mean Platelet Volume 11.5 fL (8.0-11.0); Neutrophils % 49.4; Platelet Count 158 x1000/uL (130-400); RBC 3.89 m/cumm (4.00-5.20); RBC Distribution Width 14.2 % (11.7-14.6); White Blood Cell Count 6.24 k/cumm (4.4-10.8)
== END 2019-04-14 16:49 ==
PROVIDERS: Nurse Practitioner Family; PCP Nurse Practitioner Family; Visit Provider Nurse Practitioner Family
DX: R94.4 Abnormal results of kidney function studies (principal); Z79.899 Other long term (current) drug therapy; F20.9 Schizophrenia, unspecified
CPT/HCPCS: 36415; 80048; 85025

== ENCOUNTER 2019-05-11 14:13 | Outpatient (CLI) | payer MEDICARE, MEDICAID, SELFPAY ==
[2019-05-11 14:51] LABS: Abs Immature Grans 0.02 k/cumm (0.0-0.09); Absolute Basophil Count 0.03 k/cumm (0.0-0.2); Absolute Lymphocyte Count 1.81 k/cumm (1.2-3.4); Absolute Neutrophil Count 3.53 k/cumm (1.2-6.7); Basophils % 0.5; HCT 39.1 % (36.0-46.0); HGB 12.6 g/dL (12.0-15.5); Immature Grans % 0.3 %; Lymphocytes % 31.3; Mean Corp. HGB Concentration 32.2 g/dL (32.0-36.0); Mean Corpuscular Volume 96.3 fL (80-95); Monocytes % 6.9; Platelet Count 179 x1000/uL (130-400); RBC 4.06 m/cumm (4.00-5.20); RBC Distribution Width 14.6 % (11.7-14.6); White Blood Cell Count 5.79 k/cumm (4.4-10.8)
== END 2019-05-11 14:33 ==
PROVIDERS: PCP Nurse Practitioner Family; Visit Provider Nurse Practitioner Family
DX: F20.9 Schizophrenia, unspecified (principal); Z79.899 Other long term (current) drug therapy
CPT/HCPCS: 36415; 85025

== ENCOUNTER 2019-06-05 16:25 | Outpatient (CLI) | payer MEDICARE, MEDICAID, SELFPAY ==
[2019-06-05 18:22] LABS: Anion Gap 5.5 mmol/L (3-11); BUN 20 mg/dL (7-18); CO2 32.5 mmol/L (21.0-32.0); CREATININE 1.66 mg/dL (0.55-1.02); Calcium 10.1 mg/dL (8.5-10.1); Chloride 105 mmol/L (98-107); Glucose 82 mg/dL (74-106); Potassium 4.1 mmol/L (3.5-5.1); Sodium 143 mmol/L (136-145); TSH 2.05 uIU/mL (0.36-3.74)
[2019-06-08 08:06] LABS: Vitamin D 25 Total 60.9 ng/ml (30-100)
[2019-06-08 12:23] LABS: Parathyroid Hormone,Intact 56 pg/mL (19-88)
== END 2019-06-05 16:45 ==
PROVIDERS: PCP Nurse Practitioner Family; Visit Provider Nurse Practitioner Family
DX: E03.9 Hypothyroidism, unspecified (principal); G90.3 Multi-system degeneration of the autonomic nervous system; R94.4 Abnormal results of kidney function studies; Z79.899 Other long term (current) drug therapy
CPT/HCPCS: 36415; 80048; 82306; 83970; 84443

== ENCOUNTER 2019-06-17 15:31 | Outpatient (CLI) | payer MEDICARE, MEDICAID, SELFPAY ==
[2019-06-17 15:55] LABS: Abs Immature Grans 0.02 k/cumm (0.0-0.09); Absolute Basophil Count 0.03 k/cumm (0.0-0.2); Absolute Lymphocyte Count 2.25 k/cumm (1.2-3.4); Absolute Monocyte Count 0.56 k/cumm (0.11-0.7); Absolute Neutrophil Count 3.18 k/cumm (1.2-6.7); Basophils % 0.5; HCT 36.6 % (36.0-46.0); HGB 11.7 g/dL (12.0-15.5); Immature Grans % 0.3 %; Lymphocytes % 37.3; Mean Corpuscular Hemoglobin 31.3 pg (27.0-33.0); Mean Corpuscular Volume 97.9 fL (80-95); Mean Platelet Volume 10.6 fL (8.0-11.0); Monocytes % 9.3; Neutrophils % 52.6; Platelet Count 181 x1000/uL (130-400); RBC 3.74 m/cumm (4.00-5.20); RBC Distribution Width 15.3 % (11.7-14.6); White Blood Cell Count 6.04 k/cumm (4.4-10.8)
== END 2019-06-17 15:51 ==
PROVIDERS: PCP Nurse Practitioner Family; Visit Provider Nurse Practitioner Family
DX: F20.9 Schizophrenia, unspecified (principal); Z79.899 Other long term (current) drug therapy
CPT/HCPCS: 36415; 85025

== ENCOUNTER 2019-07-17 15:18 | Outpatient (CLI) | payer MEDICARE, MEDICAID, SELFPAY ==
[2019-07-17 15:58] LABS: Abs Immature Grans 0.01 k/cumm (0.0-0.09); Absolute Basophil Count 0.03 k/cumm (0.0-0.2); Absolute Lymphocyte Count 1.94 k/cumm (1.2-3.4); Absolute Monocyte Count 0.51 k/cumm (0.11-0.7); Absolute Neutrophil Count 3.02 k/cumm (1.2-6.7); Basophils % 0.5; HCT 39.3 % (36.0-46.0); HGB 12.5 g/dL (12.0-15.5); Immature Grans % 0.2 %; Lymphocytes % 35.2; Mean Corp. HGB Concentration 31.8 g/dL (32.0-36.0); Mean Corpuscular Hemoglobin 31.1 pg (27.0-33.0); Mean Corpuscular Volume 97.8 fL (80-95); Mean Platelet Volume 10.6 fL (8.0-11.0); Monocytes % 9.3; Neutrophils % 54.8; Platelet Count 172 x1000/uL (130-400); RBC 4.02 m/cumm (4.00-5.20); RBC Distribution Width 14.4 % (11.7-14.6); White Blood Cell Count 5.51 k/cumm (4.4-10.8)
[2019-07-17 16:35] LABS: ALT 30 U/L (14-59); AST 19 U/L (15-37); Albumin 4.2 g/dL (3.4-5.0); Alkaline Phosphatase 76 U/L (46-116); Anion Gap 4.7 mmol/L (3-11); BUN 20 mg/dL (7-18); Bilirubin, Total 0.4 mg/dL (0.2-1.0); CO2 33.3 mmol/L (21.0-32.0); CREATININE 1.61 mg/dL (0.55-1.02); Calculated LDL 111 mg/dL (<100); Chloride 105 mmol/L (98-107); Cholesterol 228 mg/dL (<200); Estimated GFR 32.12 (mL/min/1.73m2); Glucose 94 mg/dL (74-106); HDL Cholesterol 99 mg/dL (40-60); Potassium 4.3 mmol/L (3.5-5.1); Sodium 143 mmol/L (136-145); TSH 1.88 uIU/mL (0.36-3.74); Total Protein 6.9 g/dL (6.4-8.2); Triglyceride 93 mg/dL (<150)
== END 2019-07-17 15:38 ==
PROVIDERS: PCP Nurse Practitioner Family; Visit Provider Nurse Practitioner Family
DX: F20.9 Schizophrenia, unspecified (principal); Z79.899 Other long term (current) drug therapy
CPT/HCPCS: 36415; 80048; 80061; 80076; 84443; 85025

== ENCOUNTER 2019-08-13 10:12 | Outpatient (REF) | payer MEDICARE, MEDICAID, SELFPAY ==
[2019-08-13 19:13] LABS: Anion Gap 7.9 mmol/L (3-11); BUN 26 mg/dL (7-18); CO2 30.1 mmol/L (21.0-32.0); CREATININE 1.58 mg/dL (0.55-1.02); Calcium 9.5 mg/dL (8.5-10.1); Chloride 104 mmol/L (98-107); Estimated GFR 32.82 (mL/min/1.73m2); Glucose 215 mg/dL (74-106); Potassium 4.3 mmol/L (3.5-5.1); Sodium 142 mmol/L (136-145)
== END 2019-08-13 10:32 ==
LOC: NCHCN 10:12
PROVIDERS: PCP Nurse Practitioner Family; Visit Provider Nurse Practitioner Family
DX: R94.4 Abnormal results of kidney function studies (principal)
CPT/HCPCS: 80048

== ENCOUNTER 2019-09-14 14:23 | Outpatient (REF) | payer MEDICARE, MEDICAID, SELFPAY ==
[2019-09-14 19:55] LABS: Abs Immature Grans 0.02 k/cumm (0.0-0.09); Absolute Basophil Count 0.03 k/cumm (0.0-0.2); Absolute Lymphocyte Count 1.85 k/cumm (1.2-3.4); Absolute Neutrophil Count 4.23 k/cumm (1.2-6.7); Basophils % 0.5; HCT 38.1 % (36.0-46.0); HGB 12.5 g/dL (12.0-15.5); Immature Grans % 0.3 %; Lymphocytes % 27.9; Mean Corp. HGB Concentration 32.8 g/dL (32.0-36.0); Mean Corpuscular Hemoglobin 31.7 pg (27.0-33.0); Mean Corpuscular Volume 96.7 fL (80-95); Mean Platelet Volume 11.6 fL (8.0-11.0); Monocytes % 7.5; Neutrophils % 63.8; Platelet Count 173 x1000/uL (130-400); RBC 3.94 m/cumm (4.00-5.20); RBC Distribution Width 14.3 % (11.7-14.6); White Blood Cell Count 6.63 k/cumm (4.4-10.8)
== END 2019-09-14 14:43 ==
LOC: NCHCN 14:23
PROVIDERS: PCP Nurse Practitioner Family; Visit Provider Nurse Practitioner Family
DX: Z79.899 Other long term (current) drug therapy (principal)
CPT/HCPCS: 85025

== ENCOUNTER 2019-10-09 10:22 | Outpatient (REF) | payer MEDICARE, MEDICAID, SELFPAY ==
[2019-10-09 20:09] LABS: Abs Immature Grans 0.02 k/cumm (0.0-0.09); Absolute Basophil Count 0.03 k/cumm (0.0-0.2); Absolute Lymphocyte Count 2.48 k/cumm (1.2-3.4); Absolute Monocyte Count 0.62 k/cumm (0.11-0.7); Basophils % 0.5; HCT 38.6 % (36.0-46.0); HGB 12.6 g/dL (12.0-15.5); Immature Grans % 0.3 %; Lymphocytes % 42.4; Mean Corp. HGB Concentration 32.6 g/dL (32.0-36.0); Mean Corpuscular Hemoglobin 31.3 pg (27.0-33.0); Mean Corpuscular Volume 95.8 fL (80-95); Mean Platelet Volume 11.5 fL (8.0-11.0); Monocytes % 10.6; Neutrophils % 46.2; Platelet Count 173 x1000/uL (130-400); RBC 4.03 m/cumm (4.00-5.20); RBC Distribution Width 14.5 % (11.7-14.6); White Blood Cell Count 5.85 k/cumm (4.4-10.8)
== END 2019-10-09 10:42 ==
LOC: NCHCN 10:22
PROVIDERS: PCP Nurse Practitioner Family; Visit Provider Nurse Practitioner Family
DX: Z79.899 Other long term (current) drug therapy (principal)
CPT/HCPCS: 85025

== ENCOUNTER 2019-11-04 16:32 | Outpatient (REF) | payer MEDICARE, MEDICAID, SELFPAY ==
[2019-11-04 20:05] LABS: Abs Immature Grans 0.02 k/cumm (0.0-0.09); Absolute Basophil Count 0.03 k/cumm (0.0-0.2); Absolute Lymphocyte Count 2.42 k/cumm (1.2-3.4); Absolute Monocyte Count 0.67 k/cumm (0.11-0.7); Absolute Neutrophil Count 3.44 k/cumm (1.2-6.7); Basophils % 0.5; HCT 39.3 % (36.0-46.0); HGB 12.4 g/dL (12.0-15.5); Immature Grans % 0.3 %; Lymphocytes % 36.8; Mean Corp. HGB Concentration 31.6 g/dL (32.0-36.0); Mean Corpuscular Hemoglobin 30.5 pg (27.0-33.0); Mean Corpuscular Volume 96.8 fL (80-95); Mean Platelet Volume 11.4 fL (8.0-11.0); Monocytes % 10.2; Neutrophils % 52.2; Platelet Count 176 x1000/uL (130-400); RBC 4.06 m/cumm (4.00-5.20); RBC Distribution Width 14.4 % (11.7-14.6); White Blood Cell Count 6.58 k/cumm (4.4-10.8)
== END 2019-11-04 16:52 ==
LOC: NCHCN 16:32
PROVIDERS: PCP Nurse Practitioner Family; Visit Provider Nurse Practitioner Family
DX: Z79.899 Other long term (current) drug therapy (principal)
CPT/HCPCS: 85025

== ENCOUNTER 2019-12-01 15:20 | Outpatient (REF) | payer MEDICARE, MEDICAID, SELFPAY ==
[2019-12-01 19:24] LABS: Abs Immature Grans 0.03 10^3/uL (0.0-0.06); Absolute Basophil Count 0.05 10^3/uL (0.0-0.2); Absolute Eosinophil Count 0.11 10^3/uL (0.0-0.7); Absolute Lymphocyte Count 2.21 10^3/uL (1.2-3.4); Absolute Monocyte Count 0.48 10^3/uL (0.1-0.8); Absolute Neutrophil Count 3.34 10^3/uL (1.2-6.7); Basophils % 0.8; Eosinophils % 1.8; HCT 37.5 % (36.0-46.0); HGB 12.1 g/dL (11.2-15.7); Immature Grans % 0.5; Lymphocytes % 35.5; MCH 31.3 pg (27.0-33.0); MCHC 32.3 % (32.0-36.0); MCV 97.2 fL (80-95); MPV 11.9 fL (8.0-11.0); Monocytes % 7.7; Neutrophils % 53.7; Platelet Count 162 10^3/uL (130-400); RBC 3.86 10^6/uL (3.93-5.22); RDW 14.2 % (11.7-14.6); RDW-SD 50.7 fL; WBC 6.22 10^3/uL (4.4-10.8)
== END 2019-12-01 15:40 ==
LOC: NCHCN 15:20
PROVIDERS: PCP Nurse Practitioner Family; Visit Provider Nurse Practitioner Family
DX: R03.0 Elevated blood-pressure reading, without diagnosis of hypertension (principal); Z02.89 Encounter for other administrative examinations; E74.39 Other disorders of intestinal carbohydrate absorption
CPT/HCPCS: 83036; 85025

== ENCOUNTER 2019-12-03 00:50 | Outpatient (CLI) | payer MEDICARE, MEDICAID, SELFPAY ==
--- NOTE | 2019-12-03 10:38 | DI.MAMMO_ITS ---
EXAM: MAMMO SCREENING CLINICAL HISTORY: SCREENING, Z12.39 TECHNIQUE: Mammograms were interpreted according to the usual protocol including computer analysis w ith CAD system, tomosynthesis and C-view imaging. COMPARISON: 2009 through 2018 FINDINGS: The breasts are composed of scattered fibroglandular densities, Breast Density category B. No suspicious masses or suspicious microcalcifications are seen. No skin thickening or abnormal axillary lymph nodes are seen. There has been no significant change from prior exams. IMPRESSION: BI-RADS Category 1, Negative mammogram Yearly screening mammography is recommended. Breast Density Category B, scattered fibroglandular densities.
== END 2019-12-03 01:10 ==
PROVIDERS: PCP Nurse Practitioner Family; Visit Provider Nurse Practitioner Family
DX: Z12.31 Encounter for screening mammogram for malignant neoplasm of breast (principal)
CPT/HCPCS: 77063; 77067

== ENCOUNTER 2020-01-12 20:06 | Outpatient (REF) | payer MEDICARE, MEDICAID, SELFPAY ==
[2020-01-12 19:26] LABS: Abs Immature Grans 0.04 10^3/uL (0.0-0.06); Absolute Basophil Count 0.03 10^3/uL (0.0-0.2); Absolute Eosinophil Count 0.12 10^3/uL (0.0-0.7); Absolute Lymphocyte Count 2.36 10^3/uL (1.2-3.4); Absolute Neutrophil Count 3.32 10^3/uL (1.2-6.7); Basophils % 0.5; Eosinophils % 1.9; HCT 36.6 % (36.0-46.0); HGB 11.9 g/dL (11.2-15.7); Immature Grans % 0.6; MCH 31.4 pg (27.0-33.0); MCHC 32.5 % (32.0-36.0); MCV 96.6 fL (80-95); MPV 12.1 fL (8.0-11.0); Monocytes % 7.8; Neutrophils % 52.2; Nucleated RBC 0 %; Platelet Count 179 10^3/uL (130-400); RBC 3.79 10^6/uL (3.93-5.22); RDW 14.3 % (11.7-14.6); RDW-SD 50.6 fL; WBC 6.37 10^3/uL (4.4-10.8)
== END 2020-01-12 20:26 ==
LOC: NCHCN 20:06
PROVIDERS: PCP Nurse Practitioner Family; Visit Provider Nurse Practitioner Family
DX: Z79.899 Other long term (current) drug therapy (principal)
CPT/HCPCS: 85025

== ENCOUNTER 2020-01-19 14:09 | Outpatient (REF) | payer MEDICARE, MEDICAID, SELFPAY ==
[2020-01-22 15:03] LABS: Patient Race White; SARS-CoV-2 RNA Undetected (Undetected); SARS-CoV-2 Specimen Source Nasal
== END 2020-01-19 14:29 ==
LOC: NCHCN 14:09
PROVIDERS: PCP Nurse Practitioner Family; Visit Provider Nurse Practitioner Family
DX: Z11.59 Encounter for screening for other viral diseases (principal)
CPT/HCPCS: U0003

== ENCOUNTER 2020-02-09 16:28 | Outpatient (REF) | payer MEDICARE, MEDICAID, SELFPAY ==
[2020-02-09 19:05] LABS: Abs Immature Grans 0.06 10^3/uL (0.0-0.06); Absolute Basophil Count 0.06 10^3/uL (0.0-0.2); Absolute Lymphocyte Count 2.11 10^3/uL (1.2-3.4); Absolute Monocyte Count 0.43 10^3/uL (0.1-0.8); Absolute Neutrophil Count 5.71 10^3/uL (1.2-6.7); Basophils % 0.7; HCT 37.8 % (36.0-46.0); Immature Grans % 0.7; Lymphocytes % 25.2; MCH 30.8 pg (27.0-33.0); MCHC 31.7 % (32.0-36.0); MCV 96.9 fL (80-95); MPV 10.8 fL (8.0-11.0); Monocytes % 5.1; Neutrophils % 68.3; Nucleated RBC 0 %; Platelet Count 199 10^3/uL (130-400); RDW 13.8 % (11.7-14.6); RDW-SD 49.2 fL; WBC 8.37 10^3/uL (4.4-10.8)
== END 2020-02-09 16:48 ==
LOC: NCHCN 16:28
PROVIDERS: PCP Nurse Practitioner Family; Visit Provider Nurse Practitioner Family
DX: Z79.899 Other long term (current) drug therapy (principal)
CPT/HCPCS: 85025

== ENCOUNTER 2020-03-10 14:52 | Outpatient (REF) | payer MEDICARE, MEDICAID, SELFPAY ==
[2020-03-10 19:02] LABS: HCT 37.6 % (36.0-46.0); HGB 11.9 g/dL (11.2-15.7); MCH 31.2 pg (27.0-33.0); MCHC 31.6 % (32.0-36.0); MCV 98.4 fL (80-95); MPV 11.7 fL (8.0-11.0); Platelet Count 172 10^3/uL (130-400); RBC 3.82 10^6/uL (3.93-5.22); RDW 13.7 % (11.7-14.6); RDW-SD 49.6 fL; WBC 6.32 10^3/uL (4.4-10.8)
== END 2020-03-10 15:12 ==
LOC: NCHCN 14:52
PROVIDERS: PCP Nurse Practitioner Family; Visit Provider Nurse Practitioner Family
DX: Z02.89 Encounter for other administrative examinations (principal); D64.9 Anemia, unspecified
CPT/HCPCS: 85027

== ENCOUNTER 2020-03-14 15:08 | Outpatient (REF) | payer MEDICARE, MEDICAID, SELFPAY ==
[2020-03-14 20:01] LABS: Anion Gap 8.7 mmol/L (3-11); BUN 19 mg/dL (7-18); CO2 28.3 mmol/L (21.0-32.0); Calcium 10.1 mg/dL (8.5-10.1); Chloride 107 mmol/L (98-107); Estimated GFR 37.62 (mL/min/1.73m2); Glucose 98 mg/dL (74-106); Potassium 4.3 mmol/L (3.5-5.1); Sodium 144 mmol/L (136-145)
== END 2020-03-14 15:28 ==
LOC: NCHCN 15:08
PROVIDERS: PCP Nurse Practitioner Family; Visit Provider Nurse Practitioner Family
DX: E74.39 Other disorders of intestinal carbohydrate absorption (principal); N18.30 Chronic kidney disease, stage 3 unspecified
CPT/HCPCS: 80048

== ENCOUNTER 2020-03-18 01:15 | Outpatient (CLI) | payer MEDICARE, MEDICAID, SELFPAY ==
[2020-03-18 13:37] LABS: Abs Immature Grans 0.03 10^3/uL (0.0-0.06); Absolute Basophil Count 0.04 10^3/uL (0.0-0.2); Absolute Lymphocyte Count 2.64 10^3/uL (1.2-3.4); Absolute Monocyte Count 0.52 10^3/uL (0.1-0.8); Absolute Neutrophil Count 4.34 10^3/uL (1.2-6.7); Basophils % 0.5; HCT 40.3 % (36.0-46.0); HGB 12.9 g/dL (11.2-15.7); Immature Grans % 0.4; Lymphocytes % 34.9; MCV 96.9 fL (80-95); MPV 10.9 fL (8.0-11.0); Monocytes % 6.9; Neutrophils % 57.3; Nucleated RBC 0 %; Platelet Count 178 10^3/uL (130-400); RBC 4.16 10^6/uL (3.93-5.22); RDW 13.8 % (11.7-14.6); RDW-SD 49.3 fL; WBC 7.57 10^3/uL (4.4-10.8)
== END 2020-03-18 01:35 ==
PROVIDERS: PCP Nurse Practitioner Family; Visit Provider Nurse Practitioner Family
DX: F25.0 Schizoaffective disorder, bipolar type (principal)
CPT/HCPCS: 36415; 85025

== ENCOUNTER 2020-03-28 20:50 | Outpatient (REF) | payer MEDICARE, MEDICAID, SELFPAY ==
[2020-03-31 23:21] LABS: Patient Race White; SARS-CoV-2 RNA Undetected (Undetected); SARS-CoV-2 Specimen Source Nasal
== END 2020-03-28 21:10 ==
LOC: NCHCN 20:50
PROVIDERS: PCP Nurse Practitioner Family; Visit Provider Nurse Practitioner Family
DX: Z11.59 Encounter for screening for other viral diseases (principal); Z00.00 Encounter for general adult medical examination without abnormal findings
CPT/HCPCS: U0003

== ENCOUNTER 2020-04-11 19:15 | Outpatient (REF) | payer MEDICARE, MEDICAID, SELFPAY ==
[2020-04-15 10:09] LABS: COVID-19 RT-PCR Result NEGATIVE (Negative)
== END 2020-04-11 19:35 ==
LOC: NCHCN 19:15
PROVIDERS: PCP Nurse Practitioner Family; Visit Provider Nurse Practitioner Family
DX: Z11.59 Encounter for screening for other viral diseases (principal)
CPT/HCPCS: U0003

== ENCOUNTER 2020-04-20 01:23 | Outpatient (CLI) | payer MEDICARE, MEDICAID, SELFPAY ==
[2020-04-26 09:49] LABS: COVID-19 RT-PCR UVMMC Result Negative (Negative)
== END 2020-04-20 01:43 ==
PROVIDERS: PCP Nurse Practitioner Family; Visit Provider Nurse Practitioner Psychiatric/Mental Health
DX: Z11.59 Encounter for screening for other viral diseases (principal)
CPT/HCPCS: U0003

== ENCOUNTER 2020-04-20 01:56 | Outpatient (CLI) | payer MEDICARE, MEDICAID, SELFPAY ==
[2020-04-20 10:25] LABS: Abs Immature Grans 0.02 10^3/uL (0.0-0.06); Absolute Basophil Count 0.04 10^3/uL (0.0-0.2); Absolute Lymphocyte Count 1.92 10^3/uL (1.2-3.4); Absolute Monocyte Count 0.69 10^3/uL (0.1-0.8); Absolute Neutrophil Count 5.67 10^3/uL (1.2-6.7); Basophils % 0.5; Immature Grans % 0.2; MCH 30.9 pg (27.0-33.0); MCHC 31.6 % (32.0-36.0); MCV 97.9 fL (80-95); Monocytes % 8.3; Nucleated RBC 0 %; Platelet Count 184 10^3/uL (130-400); RBC 3.88 10^6/uL (3.93-5.22); RDW 14.6 % (11.7-14.6); RDW-SD 52.9 fL; WBC 8.34 10^3/uL (4.4-10.8)
== END 2020-04-20 02:16 ==
PROVIDERS: Nurse Practitioner Family; PCP Nurse Practitioner Family; Visit Provider Nurse Practitioner Family
DX: F20.9 Schizophrenia, unspecified (principal); Z79.899 Other long term (current) drug therapy
CPT/HCPCS: 36415; U0003; 85025

== ENCOUNTER 2020-05-19 03:18 | Outpatient (CLI) | payer MEDICARE, MEDICAID, SELFPAY ==
[2020-05-19 12:24] LABS: Abs Immature Grans 0.03 10^3/uL (0.0-0.06); Absolute Basophil Count 0.04 10^3/uL (0.0-0.2); Absolute Eosinophil Count 0.08 10^3/uL (0.0-0.7); Absolute Lymphocyte Count 2.62 10^3/uL (1.2-3.4); Absolute Monocyte Count 0.55 10^3/uL (0.1-0.8); Absolute Neutrophil Count 2.66 10^3/uL (1.2-6.7); Basophils % 0.7; Eosinophils % 1.3; HCT 40.1 % (36.0-46.0); HGB 12.8 g/dL (11.2-15.7); Immature Grans % 0.5; Lymphocytes % 43.8; MCH 30.8 pg (27.0-33.0); MCHC 31.9 % (32.0-36.0); MCV 96.4 fL (80-95); MPV 11.2 fL (8.0-11.0); Monocytes % 9.2; Neutrophils % 44.5; Nucleated RBC 0 %; Platelet Count 180 10^3/uL (130-400); RBC 4.16 10^6/uL (3.93-5.22); RDW 14.4 % (11.7-14.6); RDW-SD 50.8 fL; WBC 5.98 10^3/uL (4.4-10.8)
== END 2020-05-19 03:38 ==
PROVIDERS: Psychiatry & Neurology Psychiatry; PCP Nurse Practitioner Family; Visit Provider Nurse Practitioner Family
DX: F25.0 Schizoaffective disorder, bipolar type (principal); F20.9 Schizophrenia, unspecified; Z79.899 Other long term (current) drug therapy
CPT/HCPCS: 36415; 85025

== ENCOUNTER 2020-05-27 13:26 | Outpatient (REF) | payer MEDICARE, MEDICAID, SELFPAY ==
[2020-05-29 10:36] LABS: COVID-19 RT-PCR Result NEGATIVE (Negative)
== END 2020-05-27 13:46 ==
LOC: NCHCN 13:26
PROVIDERS: PCP Nurse Practitioner Family; Visit Provider Nurse Practitioner Family
DX: Z11.52 Encounter for screening for COVID-19 (principal)
CPT/HCPCS: U0003

== ENCOUNTER 2020-06-17 01:42 | Outpatient (CLI) | payer MEDICARE, MEDICAID, SELFPAY ==
[2020-06-17 10:40] LABS: Abs Immature Grans 0.03 10^3/uL (0.0-0.06); Absolute Basophil Count 0.04 10^3/uL (0.0-0.2); Absolute Eosinophil Count 0.14 10^3/uL (0.0-0.7); Absolute Lymphocyte Count 2.61 10^3/uL (1.2-3.4); Absolute Monocyte Count 0.48 10^3/uL (0.1-0.8); Absolute Neutrophil Count 3.25 10^3/uL (1.2-6.7); Basophils % 0.6; Eosinophils % 2.1; HCT 40.4 % (36.0-46.0); HGB 12.5 g/dL (11.2-15.7); Immature Grans % 0.5; Lymphocytes % 39.8; MCH 30.5 pg (27.0-33.0); MCHC 30.9 % (32.0-36.0); MCV 98.5 fL (80-95); MPV 10.6 fL (8.0-11.0); Monocytes % 7.3; Neutrophils % 49.7; Nucleated RBC 0 %; Platelet Count 198 10^3/uL (130-400); RDW 14.6 % (11.7-14.6); RDW-SD 53.5 fL; WBC 6.55 10^3/uL (4.4-10.8)
[2020-06-17 11:36] LABS: Albumin 4.4 g/dL (3.4-5.0); Anion Gap 7.6 mmol/L (3-11); BUN 27 mg/dL (7-18); CO2 29.4 mmol/L (21.0-32.0); CREATININE 1.5 mg/dL (0.55-1.02); Calcium 9.8 mg/dL (8.5-10.1); Calculated LDL 130 mg/dL (<100); Chloride 105 mmol/L (98-107); Cholesterol 250 mg/dL (<200); Estimated GFR 34.74 (mL/min/1.73m2); Glucose 119 mg/dL (74-106); HDL Cholesterol 103 mg/dL (40-60); Potassium 3.9 mmol/L (3.5-5.1); Sodium 142 mmol/L (136-145); TSH 1.71 uIU/mL (0.36-3.74); Triglyceride 88 mg/dL (<150)
== END 2020-06-17 01:43 | disposition home or self-care (01) ==
LOC: LBO 01:42
PROVIDERS: Psychiatry & Neurology Psychiatry; PCP Nurse Practitioner Family; Visit Provider Nurse Practitioner Family
DX: N18.30 Chronic kidney disease, stage 3 unspecified (principal); R73.09 Other abnormal glucose; E03.9 Hypothyroidism, unspecified; F25.0 Schizoaffective disorder, bipolar type; Z79.899 Other long term (current) drug therapy
CPT/HCPCS: 36415; 80048; 80061; 82040; 84443; 85025

== ENCOUNTER 2020-06-20 00:52 | Outpatient (CLI) | payer MEDICARE, MEDICAID, SELFPAY ==
--- NOTE | 2020-06-20 | DI.US_ITS ---
EXAM: US RENAL CLINICAL HISTORY: CHRONIC KIDNEY DISEASE, STAGE 3, N18.3 TECHNIQUE: Ultrasound of both kidneys performed using standard protocol. COMPARISON: No exams were available for comparison FINDINGS: RIGHT KIDNEY: Measures 11.7 cm in length. Significant loss of corticomedullary differentiation. No solid masses. No cysts. No hydronephrosis. LEFT KIDNEY: Measures 10.6 cm in length. There is also significant loss of corticomedullary differentiation, delano lar to the opposite side side. Mild prominence of the renal pelvis. No through caliectasis. URINARY BLADDER: Prevoid volume is 314 cc Postvoid volume is 25 cc No evidence of bladder mass nor diverticuli. Ureterovesical jets: Both identified and appear symmetrical IMPRESSION: 1. The main finding here is significant loss of corticomedullary differentiation both kidneys consis tent with significant medical renal disease. 2. No solid renal masses. Mild prominence of the left renal pelvis noted. No obvious bladder wall mass. DATA REPOSITORY:
== END 2020-06-20 00:53 ==
LOC: DI 00:52
PROVIDERS: PCP Nurse Practitioner Family; Visit Provider Nurse Practitioner Family
DX: N18.30 Chronic kidney disease, stage 3 unspecified (principal)
CPT/HCPCS: 76770

== ENCOUNTER 2020-06-22 15:15 | Outpatient (REF) | payer MEDICARE, MEDICAID, SELFPAY ==
[2020-06-22 17:00] LABS: PROTEIN < 6.0 mg/dL
[2020-06-22 17:02] LABS: COMMENT (LAB VIEW ONLY) < 13.00 mg/dL
[2020-06-22 18:29] LABS: Bilirubin Negative (Negative); Blood Negative (Negative); Clarity Clear (Clear); Glucose Negative (Negative); Ketones Negative (Negative); Leukocyte Esterase Negative (Negative); Nitrite Negative (Negative); Specific Gravity 1.015 (1.005-1.025); Urobilinogen 0.2 EU/dL (Up TO 0.2); pH 7.5 (5-8)
== END 2020-06-22 15:16 | disposition home or self-care (01) ==
LOC: NCHCN 15:15
PROVIDERS: PCP Nurse Practitioner Family; Visit Provider Nurse Practitioner Family
DX: E03.9 Hypothyroidism, unspecified (principal); R73.09 Other abnormal glucose; N18.30 Chronic kidney disease, stage 3 unspecified
CPT/HCPCS: 81003; 82565; 84156

== ENCOUNTER 2020-07-15 03:00 | Outpatient (CLI) | payer MEDICARE, MEDICAID, SELFPAY ==
[2020-07-15 15:53] LABS: Abs Immature Grans 0.02 10^3/uL (0.0-0.06); Absolute Basophil Count 0.05 10^3/uL (0.0-0.2); Absolute Eosinophil Count 0.11 10^3/uL (0.0-0.7); Absolute Lymphocyte Count 1.96 10^3/uL (1.2-3.4); Absolute Monocyte Count 0.39 10^3/uL (0.1-0.8); Absolute Neutrophil Count 3.11 10^3/uL (1.2-6.7); Basophils % 0.9; HCT 37.4 % (36.0-46.0); Immature Grans % 0.4; Lymphocytes % 34.8; MCH 30.7 pg (27.0-33.0); MCHC 32.1 % (32.0-36.0); MCV 95.7 fL (80-95); MPV 11.9 fL (8.0-11.0); Monocytes % 6.9; Nucleated RBC 0 %; Platelet Count 168 10^3/uL (130-400); RBC 3.91 10^6/uL (3.93-5.22); RDW 13.9 % (11.7-14.6); RDW-SD 48.9 fL; WBC 5.64 10^3/uL (4.4-10.8)
[2020-07-15 16:25] LABS: ALT 37 U/L (14-59); AST 21 U/L (15-37); Albumin 3.8 g/dL (3.4-5.0); Alkaline Phosphatase 88 U/L (46-116); Anion Gap 10.7 mmol/L (3-11); BUN 22 mg/dL (7-18); Bilirubin, Total 0.4 mg/dL (0.2-1.0); CO2 27.3 mmol/L (21.0-32.0); CREATININE 1.5 mg/dL (0.55-1.02); Calcium 9.4 mg/dL (8.5-10.1); Calculated LDL 89 mg/dL (<100); Chloride 106 mmol/L (98-107); Cholesterol 186 mg/dL (<200); Estimated GFR 34.74 (mL/min/1.73m2); Glucose 103 mg/dL (74-106); HDL Cholesterol 79 mg/dL (40-60); Potassium 4.2 mmol/L (3.5-5.1); Sodium 144 mmol/L (136-145); TSH 0.99 uIU/mL (0.36-3.74); Total Protein 6.6 g/dL (6.4-8.2); Triglyceride 90 mg/dL (<150)
[2020-07-15 16:59] LABS: Bilirubin, Direct 0.1 mg/dL (0.0-0.2)
== END 2020-07-15 03:01 | disposition home or self-care (01) ==
LOC: LBO 03:00
PROVIDERS: Nurse Practitioner Family; PCP Nurse Practitioner Family; Visit Provider Nurse Practitioner Psychiatric/Mental Health
DX: F20.9 Schizophrenia, unspecified (principal); Z79.899 Other long term (current) drug therapy
CPT/HCPCS: 36415; 80048; 80061; 80076; 84443; 85025

== ENCOUNTER 2020-08-15 04:08 | Outpatient (CLI) | payer MEDICARE, MEDICAID, SELFPAY ==
[2020-08-15 14:10] LABS: Abs Immature Grans 0.02 10^3/uL (0.0-0.06); Absolute Basophil Count 0.03 10^3/uL (0.0-0.2); Absolute Eosinophil Count 0.12 10^3/uL (0.0-0.7); Absolute Lymphocyte Count 2.66 10^3/uL (1.2-3.4); Absolute Monocyte Count 0.46 10^3/uL (0.1-0.8); Absolute Neutrophil Count 2.85 10^3/uL (1.2-6.7); Basophils % 0.5; HGB 12.3 g/dL (11.2-15.7); Immature Grans % 0.3; Lymphocytes % 43.3; MCH 30.8 pg (27.0-33.0); MCHC 31.5 % (32.0-36.0); MCV 97.7 fL (80-95); MPV 10.9 fL (8.0-11.0); Monocytes % 7.5; Neutrophils % 46.4; Nucleated RBC 0 %; Platelet Count 176 10^3/uL (130-400); RBC 3.99 10^6/uL (3.93-5.22); RDW-SD 50.6 fL; WBC 6.14 10^3/uL (4.4-10.8)
== END 2020-08-15 04:09 | disposition home or self-care (01) ==
PROVIDERS: PCP Nurse Practitioner Family; Visit Provider Nurse Practitioner Family
DX: F20.9 Schizophrenia, unspecified (principal); Z79.899 Other long term (current) drug therapy
CPT/HCPCS: 36415; 85025

== ENCOUNTER 2020-09-08 03:17 | Outpatient (CLI) | payer MEDICARE, MEDICAID, SELFPAY ==
[2020-09-08 14:38] LABS: Abs Immature Grans 0.02 10^3/uL (0.0-0.06); Absolute Basophil Count 0.05 10^3/uL (0.0-0.2); Absolute Eosinophil Count 0.12 10^3/uL (0.0-0.7); Absolute Lymphocyte Count 2.24 10^3/uL (1.2-3.4); Absolute Neutrophil Count 3.01 10^3/uL (1.2-6.7); Basophils % 0.9; Eosinophils % 2.1; HCT 36.7 % (36.0-46.0); HGB 11.8 g/dL (11.2-15.7); Immature Grans % 0.3; Lymphocytes % 38.4; MCH 31.6 pg (27.0-33.0); MCHC 32.2 % (32.0-36.0); MCV 98.4 fL (80-95); MPV 10.3 fL (8.0-11.0); Monocytes % 6.8; Neutrophils % 51.5; Nucleated RBC 0 %; Platelet Count 169 10^3/uL (130-400); RBC 3.73 10^6/uL (3.93-5.22); RDW 14.1 % (11.7-14.6); RDW-SD 51.4 fL; WBC 5.84 10^3/uL (4.4-10.8)
== END 2020-09-08 03:18 | disposition home or self-care (01) ==
PROVIDERS: PCP Nurse Practitioner Family; Visit Provider Psychiatry & Neurology Psychiatry
DX: F25.0 Schizoaffective disorder, bipolar type; Z79.899 Other long term (current) drug therapy
CPT/HCPCS: 36415; 85025

== ENCOUNTER 2020-09-30 02:24 | Outpatient (CLI) | payer MEDICARE, MEDICAID, SELFPAY ==
[2020-09-30 14:13] LABS: Abs Immature Grans 0.03 10^3/uL (0.0-0.06); Absolute Basophil Count 0.04 10^3/uL (0.0-0.2); Absolute Eosinophil Count 0.11 10^3/uL (0.0-0.7); Absolute Lymphocyte Count 2.04 10^3/uL (1.2-3.4); Absolute Neutrophil Count 3.04 10^3/uL (1.2-6.7); Basophils % 0.7; Eosinophils % 1.9; HCT 38.9 % (36.0-46.0); HGB 12.5 g/dL (11.2-15.7); Immature Grans % 0.5; Lymphocytes % 34.8; MCH 31.6 pg (27.0-33.0); MCHC 32.1 % (32.0-36.0); MCV 98.5 fL (80-95); MPV 11.1 fL (8.0-11.0); Monocytes % 10.2; Neutrophils % 51.9; Nucleated RBC 0 %; Platelet Count 173 10^3/uL (130-400); RBC 3.95 10^6/uL (3.93-5.22); RDW 14.3 % (11.7-14.6); RDW-SD 52.6 fL; WBC 5.86 10^3/uL (4.4-10.8)
== END 2020-09-30 02:25 | disposition home or self-care (01) ==
PROVIDERS: PCP Nurse Practitioner Family; Visit Provider Psychiatry & Neurology Psychiatry
DX: F25.0 Schizoaffective disorder, bipolar type (principal); F20.89 Other schizophrenia; Z79.899 Other long term (current) drug therapy
CPT/HCPCS: 36415; 85025

== ENCOUNTER 2020-10-26 02:19 | Outpatient (CLI) | payer MEDICARE, MEDICAID, SELFPAY ==
[2020-10-26 14:08] LABS: Abs Immature Grans 0.02 10^3/uL (0.0-0.06); Absolute Basophil Count 0.04 10^3/uL (0.0-0.2); Absolute Lymphocyte Count 2.03 10^3/uL (1.2-3.4); Absolute Monocyte Count 0.41 10^3/uL (0.1-0.8); Absolute Neutrophil Count 3.65 10^3/uL (1.2-6.7); Basophils % 0.7; HCT 40.5 % (36.0-46.0); HGB 12.8 g/dL (11.2-15.7); Immature Grans % 0.3; MCH 31.4 pg (27.0-33.0); MCHC 31.6 % (32.0-36.0); MCV 99.3 fL (80-95); MPV 10.9 fL (8.0-11.0); Monocytes % 6.7; Neutrophils % 59.3; Nucleated RBC 0 %; Platelet Count 184 10^3/uL (130-400); RBC 4.08 10^6/uL (3.93-5.22); RDW 14.1 % (11.7-14.6); RDW-SD 51.8 fL; WBC 6.15 10^3/uL (4.4-10.8)
== END 2020-10-26 02:20 | disposition home or self-care (01) ==
LOC: LBO 02:19
PROVIDERS: PCP Nurse Practitioner Family; Visit Provider Nurse Practitioner Family
DX: F25.0 Schizoaffective disorder, bipolar type (principal); Z79.899 Other long term (current) drug therapy
CPT/HCPCS: 36415; 85025

== ENCOUNTER 2020-11-08 07:11 | Emergency (ER) | payer MEDICARE, MEDICAID, SELFPAY ==
[2020-11-08 07:14] VITALS: BP 124/67; PULSE 100; RESP 16; TEMP 36.7; O2SAT 99
--- NOTE | 2020-11-08 07:16 | ED.GENADUL_ITS ---
Discharge Plan Disposition Patient Disposition: HOME Condition: Good Discharge Details Clinical Impression: Worried well, Encounter for medical assessment Primary Care Provider: Deirdre Faustin ED Provider: Roque Varner Home Meds and New Rx's Prescriptions: Continued lamotrigine [Lamictal] 200 MG tablet 200 mg PO DAILY RF: 0 polyethylene glycol 3350 [Miralax] 17 GM powder in packet 17 g PO DAILY Qty: 255 RF: 0 clozapine [Clozaril] 100 MG tablet 400 mg PO DAILY RF: 0 levothyroxine [Levoxyl] 75 MCG tablet 75 mcg PO DAILY RF: 0 melatonin 3 MG tablet 6 mg PO HS RF: 0 lisinopril 10 MG tablet 10 mg PO DAILY RF: 0 darifenacin [Enablex] 7.5 MG tablet extended release 24 hr 15 mg PO DAILY RF: 0 magnesium citrate 296 ML solution 296 ml PO as directed Qty: 2 RF: 0 bisacodyl [Bisa-Lax (bisacodyl)] 5 MG tablet,delayed release (DR/EC) 5 mg PO as directed Qty: 4 RF: 0 polyethylene glycol 3350 255 GM powder 255 gm PO as directed for colo Qty: 255 RF: 0 Toviaz 4 MG tablet extended release 24 hr 8 mg PO DAILY RF: 0 selenium 100 MCG tablet 100 mcg PO DAILY RF: 0 diphenhydramine-acetaminophen [Acetaminophen PM] 1 EACH tablet 1 ea PO HS RF: 0 multivitamin 1 EACH capsule 1 ea PO DAILY RF: 0 fludrocortisone 0.1 MG tablet 0.1 mg PO DAILY RF: 0 Hair, Skin and Nails Advanced 1 EACH tablet 1 ea PO DAILY RF: 0 Pepogest 0.2 ML capsule,delayed release(DR/EC) 1 cap PO DAILY RF: 0 Discharge Instructions Additional Instructions: At this time your exam is very reassuring. There is no evidence of significant adverse reaction from the small amount of Drano that came in contact with your tongue. Please take Tums at home if your stomach becomes upset. If you notice any worsening of your symptoms, or any new symptoms such as vomiting, diarrhea, fever, chills, shortness of breath, chest pain, numbness, weakness, or fainting , please return immediately to the emergency department for reevaluation. Please follow up with your primary care provider as soon as possible for reassessment and reevaluation. As always, it was a pleasure participating in your medical care today. Referrals: Deirdre Faustin [Primary Care Provider] - Medical Decision Making 64-year-old female presents today for evaluation after tasting some Drano. Patient states that yesterday she was cleaning her sink, and she was unclogging the drain. She was uncertain if all the drain was out so she touched the sink with her finger, immediately tasting some Drano. She did not drink any or ingest any significant amount. She feels well aside from mild amount of burning sensation on the tip of her tongue which is mostly resolved at this point. She denies any nausea or vomiting. She denies any chest pain or shortness of breath. She explicitly denies drinking or taking any significant amounts. Patient has no other complaints at this time. No other modifying fact ors Exam is notably unremarkable, oropharynx shows no evidence of discoloration, or burning or sloughing of the tongue. No abnormalities in the posterior oropharynx. Patient stable for discharge. Patient feels notably reassured. I have extensively reviewed the treatment plan and discharge instructions with the patient. I have addressed all patient concerns at this time. The patient was made aware of what symptoms to monitor for that would warrant a return to the emergency department. Discussed the plan with the patient, they demonstrate verbal understanding and agreement with our assessment and plan at this time. The documentation in this chart was dictated using [employer] dictation software. Please excuse any dictation errors. HPI General Date/Time Provider Initiated Documentation: 11/08/20 07:12 . HPI Narrative: 64-year-old female presents today for evaluation after tasting some Drano. Patient states that yesterday she was cleaning her sink, and she was unclogging the drain. She was uncertain if all the drain was out so she touched the sink with her finger, immediately tasting some Drano. She did not drink any or ingest any significant amount. She feels well aside from mild amount of burning sensation on the tip of her tongue which is mostly resolved at this point. She denies any nausea or vomiting. She denies any chest pain or shortness of breath. She explicitly denies drinking or taking any significant amounts. Patient has no other complaints at this time. No other modifying factors Related Data Home Medications Medication Instructions Recorded Confirmed clozapine [Clozaril] 400 mg PO DAILY tab-cap 08/19/17 11/25/17 darifenacin [Enablex] 15 mg PO DAILY tab-cap 08/19/17 11/25/17 lamotrigine [Lamictal] 200 mg PO DAILY tab-cap 08/19/17 11/25/17 levothyroxine [Levoxyl] 75 mcg PO DAILY tab-cap 08/19/17 11/25/17 lisinopril 10 mg PO DAILY tab-cap 08/19/17 11/25/17 melatonin 6 mg PO HS 08/19/17 11/25/17 polyethylene glycol 3350 [Miralax] 17 g PO DAILY #255 gm 08/19/17 11/25/17 bisacodyl [Bisa-Lax (bisacodyl)] 5 mg PO as directed #4 tab 11/08/17 magnesium citrate 296 ml PO as directed #2 bottle 11/08/17 polyethylene glycol 3350 255 gm PO as directed for colo 11/08/17 #255 gm diphenhydramine-acetaminophen 1 ea PO HS 11/20/17 11/25/17 [Acetaminophen PM] fesoterodine [Toviaz] 8 mg PO DAILY 11/20/17 11/25/17 fludrocortisone 0.1 mg PO DAILY 11/20/17 11/25/17 multivit [id number] 1 ea PO DAILY 11/20/17 11/25/17 [Hair, Skin and Nails Advanced] multivitamin 1 ea PO DAILY 11/20/17 11/25/17 peppermint oil [Pepogest] 1 cap PO DAILY 11/20/17 11/25/17 selenium 100 mcg PO DAILY 11/20/17 11/25/17 Previous Rx's Medication Instructions Recorded bisacodyl [Bisa-Lax (bisacodyl)] 5 mg PO as directed #4 tab 11/08/17 magnesium citrate 296 ml PO as directed #2 bottle 11/08/17 polyethylene glycol 3350 255 gm PO as directed for colo 11/08/17 #255 gm Allergies Allergy/AdvReac Type Severity Reaction Status Date / Time mirabegron [From Myrbetriq] Allergy Unverified 11/08/20 07:20 Review of Systems All systems reviewed & are unremarkable except as noted in HPI and below [facility] Medical History Anemia Atypical chest pain Back pain Benign neoplasm of skin of trunk Colon atonic Conjunctivitis Diverticulosis Dizziness Elevated serum creatinine Glucose intolerance Hair loss History of tobacco use Hypothyroidism Movement disorder Neck pain Orthostatic hypotension due to Parkinson's disease Overactive bladder Parkinsonism Personality disorder Redundant colon Renal insufficiency Schizoaffective disorder Seasonal allergies Tachycardia Surgical History Colonoscopy - IV Sedation 2005- not completed due to incomplete prep Colonoscopy - MAC (11/25/17) Social History Smoking/Tobacco Use Status: Former Tobacco Use Smoking risk assessment performed?: Yes Drug use: Never Exam Narrative Exam Narrative: 1.Const: Well-nourished, Well-developed, appearing stated age 2.Eyes: PERRL, no conjunctival injection, and symmetrical lids. 3.ENT: Atraumatic external nose and ears. Moist MM. Neck: Symmetric, trachea midline, No thyromegaly. No evidence of burning, excoriation, or discoloration of the tongue. No abnormalities in the posterior 4.CVS: +S1/S2, No murmurs or gallops. Peripheral pulses 2+ and equal in all extremities. Brisk capillary refill in all extremities. 5.RESP: Unlabored respiratory effort. Clear to auscultation bilaterally. No wheezes rales or rhonchi 6.GI: Soft, Nontender/Nondistended, No hepatosplenomegaly. No guarding or rebound. 7.MSK: Normocephalic/Atraumatic, Extremities w/o deformity or ttp No cyanosis or clubbing, Normal movement of all extremities 8.Skin: Warm, Dry. No rashes or lesions. 9.Neuro: head of biology II-XII grossly intact. Sensation grossly intact, no focal neurologic deficits. 10.Psych: (AAO) x3. Appropriate mood and affect
[2020-11-08 07:24] VITALS: RESP 16
== END 2020-11-08 07:21 | disposition home or self-care (01) ==
LOC: ER 07:33
PROVIDERS: Emergency Provider Student in an Organized Health Care Education/Training Program; PCP Nurse Practitioner Family
DX: T54.3X1A Toxic effect of corrosive alkalis and alkali-like substances, accidental (unintentional), initial encounter (principal); R20.8 Other disturbances of skin sensation; Z71.1 Person with feared health complaint in whom no diagnosis is made
CPT/HCPCS: 99281; 99282

== ENCOUNTER 2020-11-10 02:08 | Outpatient (CLI) | payer MEDICARE, MEDICAID, SELFPAY ==
--- NOTE | 2020-11-10 | DI.DEXA_ITS ---
Exam(s) XR DEXA BONE DENSITY W/WO JAGJIT EXAM: XR DEXA BONE DENSITY W/WO JAGJIT CLINICAL HISTORY: OTHER DISORDER OF BONE DENSITY, M85.88,H/O OSTEOPENIA TECHNIQUE: [employer] Layer Horizon C densitometer COMPARISON: DX DEXA BONE DENSITY WITH JAGJIT from 03/18/2012 DX DEXA BONE DENSITY WITH JAGJIT from 03/18/2012 CR LUMBAR SPINE COMPLETE from 06/17/2012 DEXA scan of 2004 FINDINGS: Lateral view of the thoracic and lumbar spine shows no evidence of compression fractures. Bone mineral density measurements of the lumbar spine correspond to a total T-score of -0.6, in the normal range. This is not significantly changed from 2011 but represents an 11.1 percent decrease wh en compared with 2004. Bone mineral density measurements of the left hip correspond to a total T-score of -1.5. The femora l neck T-score is -2.6, in the osteoporotic range. This represents a 5.4 percent decrease when comp ared with 2011 and a 13.6 percent decrease when compared with 2004.. The left forearm bone mineral density measurements correspond to a T-score of the distal 3rd of -1.1 , in the osteopenic range. This represents a 6.7 percent decrease when compared with 2011. The fore arm was not analyzed in 2004.. IMPRESSION: Osteopenia of the left forearm. Normal bone mineral density of the lumbar spine. Osteoporosis of th e left hip.
== END 2020-11-10 02:28 ==
PROVIDERS: PCP Nurse Practitioner Family; Visit Provider Nurse Practitioner Family
DX: M85.832 Other specified disorders of bone density and structure, left forearm (principal); M81.0 Age-related osteoporosis without current pathological fracture
CPT/HCPCS: 77080

== ENCOUNTER 2020-11-22 03:10 | Outpatient (CLI) | payer MEDICARE, MEDICAID, SELFPAY ==
[2020-11-22 15:14] LABS: Abs Immature Grans 0.01 10^3/uL (0.0-0.06); Absolute Basophil Count 0.04 10^3/uL (0.0-0.2); Absolute Eosinophil Count 0.13 10^3/uL (0.0-0.7); Absolute Lymphocyte Count 2.13 10^3/uL (1.2-3.4); Absolute Monocyte Count 0.41 10^3/uL (0.1-0.8); Absolute Neutrophil Count 3.34 10^3/uL (1.2-6.7); Basophils % 0.7; Eosinophils % 2.1; HGB 12.6 g/dL (11.2-15.7); Immature Grans % 0.2; Lymphocytes % 35.1; MCH 31.9 pg (27.0-33.0); MCHC 32.3 % (32.0-36.0); MCV 98.7 fL (80-95); MPV 10.7 fL (8.0-11.0); Monocytes % 6.8; Neutrophils % 55.1; Nucleated RBC 0 %; Platelet Count 165 10^3/uL (130-400); RBC 3.95 10^6/uL (3.93-5.22); RDW 13.1 % (11.7-14.6); RDW-SD 47.5 fL; WBC 6.06 10^3/uL (4.4-10.8)
== END 2020-11-22 03:11 | disposition home or self-care (01) ==
PROVIDERS: PCP Nurse Practitioner Family; Visit Provider Psychiatry & Neurology Psychiatry
DX: F25.0 Schizoaffective disorder, bipolar type (principal); Z79.899 Other long term (current) drug therapy
CPT/HCPCS: 36415; 85025

== ENCOUNTER 2020-12-19 03:12 | Outpatient (CLI) | payer MEDICARE, MEDICAID, SELFPAY ==
[2020-12-19 16:39] LABS: Abs Immature Grans 0.02 10^3/uL (0.0-0.06); Absolute Basophil Count 0.03 10^3/uL (0.0-0.2); Absolute Monocyte Count 0.46 10^3/uL (0.1-0.8); Absolute Neutrophil Count 2.28 10^3/uL (1.2-6.7); Basophils % 0.6; HCT 36.1 % (36.0-46.0); HGB 11.3 g/dL (11.2-15.7); Immature Grans % 0.4; Lymphocytes % 42.9; MCH 31.4 pg (27.0-33.0); MCHC 31.3 % (32.0-36.0); MCV 100.3 fL (80-95); MPV 10.7 fL (8.0-11.0); Monocytes % 9.4; Neutrophils % 46.7; Nucleated RBC 0 %; Platelet Count 166 10^3/uL (130-400); RDW 13.7 % (11.7-14.6); RDW-SD 50.9 fL; WBC 4.89 10^3/uL (4.4-10.8)
[2020-12-19 18:10] LABS: Vitamin D 25 Total 47.2 ng/mL (30-100)
== END 2020-12-19 03:13 | disposition home or self-care (01) ==
PROVIDERS: PCP Nurse Practitioner Family; Visit Provider Psychiatry & Neurology Psychiatry
DX: M81.0 Age-related osteoporosis without current pathological fracture (principal); F25.0 Schizoaffective disorder, bipolar type; Z79.899 Other long term (current) drug therapy
CPT/HCPCS: 36415; 82306; 85025

== ENCOUNTER 2020-12-22 01:45 | Outpatient (CLI) | payer MEDICARE, MEDICAID, SELFPAY ==
--- NOTE | 2020-12-22 | DI.MAMMO_ITS ---
Exam(s) MAMMO SCREENING EXAM: MAMMO SCREENING CLINICAL HISTORY: SCREENING, Z12.39. FAMILY H/O BREAST CA. TECHNIQUE: Bilateral full field digital CC and MLO mammographic images were obtained with 3D tomosyn thesis and utilizing computer aided detection (CAD). COMPARISON: Prior mammograms dating back to 2012, the most recent being November 1999. FINDINGS: There are no new significant radiograph findings in left breast. In the upper outer quadrant of the right breast microcalcifications noted, somewhat different appeara nce than on prior studies spot Mag 2D views recommended both CC and ML planes. There is no significant architectural distortion nor skin thickening-retraction. Skin moles again noted IMPRESSION: 1. No radiographic evidence of malignancy in the left breast. 2. Right breast microcalcifications which require spot Mag 2D views BI-RADS Category 0 - Assessment Incomplete: Need additional imaging evaluation Breast Density - Category B - Scattered areas of fibroglandular density Breast density Category C or D implies that the patient has dense breast tissue. Dense breast tissue can make it harder to find cancer on a mammogram. Dense breast tissue is also associated with an incr eased risk of breast cancer. This information about the result of the mammogram report was provided to the patient to raise their awareness. Use this report when you speak with the patient about their risks for breast cancer, which includes their family history. At that time, you may recommend additional screening tests (Ultrasoun d or MRI) as these tests may add significant information. A negative radiographic report should not delay biopsy if a dominant or clinically suspicious mass is present. Up to ten percent of cancers are not identified on mammography. A negative report may reinforce clinical impression. Adenosis and dense breasts may obscure an underlying neoplasm. False positive reports average 6 to 10%. Patient will receive a letter notifying them of these results.
== END 2020-12-22 02:05 ==
PROVIDERS: PCP Nurse Practitioner Family; Visit Provider Nurse Practitioner Family
DX: Z12.31 Encounter for screening mammogram for malignant neoplasm of breast (principal); R92.8 Other abnormal and inconclusive findings on diagnostic imaging of breast; Z80.3 Family history of malignant neoplasm of breast
CPT/HCPCS: 77063; 77067

== ENCOUNTER 2021-01-13 03:17 | Outpatient (CLI) | payer MEDICARE, MEDICAID, SELFPAY ==
[2021-01-13 16:43] LABS: Abs Immature Grans 0.03 10^3/uL (0.0-0.06); Absolute Basophil Count 0.04 10^3/uL (0.0-0.2); Absolute Lymphocyte Count 2.49 10^3/uL (1.2-3.4); Absolute Monocyte Count 0.48 10^3/uL (0.1-0.8); Absolute Neutrophil Count 3.17 10^3/uL (1.2-6.7); Basophils % 0.6; HCT 35.6 % (36.0-46.0); HGB 11.1 g/dL (11.2-15.7); Immature Grans % 0.5; Lymphocytes % 40.1; MCH 31.3 pg (27.0-33.0); MCHC 31.2 % (32.0-36.0); MCV 100.3 fL (80-95); Monocytes % 7.7; Neutrophils % 51.1; Nucleated RBC 0 %; Platelet Count 166 10^3/uL (130-400); RBC 3.55 10^6/uL (3.93-5.22); RDW 13.5 % (11.7-14.6); RDW-SD 50.5 fL; WBC 6.21 10^3/uL (4.4-10.8)
== END 2021-01-13 03:18 | disposition home or self-care (01) ==
PROVIDERS: PCP Nurse Practitioner Family; Visit Provider Psychiatry & Neurology Psychiatry
DX: F25.0 Schizoaffective disorder, bipolar type (principal); Z79.899 Other long term (current) drug therapy
CPT/HCPCS: 36415; 85025

== ENCOUNTER 2021-01-18 13:41 | Outpatient (REF) | payer MEDICARE, MEDICAID, SELFPAY ==
[2021-01-18 20:22] LABS: Anion Gap 8.3 mmol/L (3-11); BUN 29 mg/dL (7-18); CO2 28.7 mmol/L (21.0-32.0); CREATININE 1.3 mg/dL (0.55-1.02); Calcium 10.1 mg/dL (8.5-10.1); Chloride 107 mmol/L (98-107); Estimated GFR 40.86 (mL/min/1.73m2); Glucose 76 mg/dL (74-106); Potassium 4.3 mmol/L (3.5-5.1); Sodium 144 mmol/L (136-145)
== END 2021-01-18 13:42 | disposition home or self-care (01) ==
LOC: NCHCN 13:41
PROVIDERS: PCP Nurse Practitioner Family; Visit Provider Nurse Practitioner Family
DX: N18.30 Chronic kidney disease, stage 3 unspecified (principal)
CPT/HCPCS: 80048

== ENCOUNTER 2021-01-19 01:58 | Outpatient (CLI) | payer MEDICARE, MEDICAID, SELFPAY ==
--- NOTE | 2021-01-19 | DI.MAMMO_ITS ---
Exam(s) MAMMO SCREEN CALL BACK UNI EXAM: MAMMO SCREEN CALL BACK UNI CLINICAL HISTORY: F/U ABNL MAMMO, MICROCALCIFICATIONS RT. TECHNIQUE: Craniocaudal and mediolateral oblique Full Field Digital Mammography views of the right b reast with Computer Aided Diagnosis. COMPARISON: Comparison with prior examinations. FINDINGS: Mammography/Tomosynthesis: Masses/Architectural Distortion: None seen. Microcalcifictions: No suspicious pleomorphic-type are seen. On the spot magnification views, the maddie cifications in question of a similar appearance to the prior examinations. Skin Thickening/Nipple Retraction: None. IMPRESSION: 1. No evidence of malignancy is noted. 2. Unless there is more urgent need, follow-up screening mammography is recommended, as per [place] [employer] guidelines. 3. The findings were discussed with the patient on the date of the examination. BI-RADS Category 2 - Benign Findings Breast Density - Category B - Scattered areas of fibroglandular density Breast density Category C or D implies that the patient has dense breast tissue. Dense breast tissue can make it harder to find cancer on a mammogram. Dense breast tissue is also associated with an incr eased risk of breast cancer. This information about the result of the mammogram report was provided to the patient to raise their awareness. Use this report when you speak with the patient about their risks for breast cancer, which includes their family history. At that time, you may recommend additional screening tests (Ultrasoun d or MRI) as these tests may add significant information. A negative radiographic report should not delay biopsy if a dominant or clinically suspicious mass is present. Up to ten percent of cancers are not identified on mammography. A negative report may reinforce clinical impression. Adenosis and dense breasts may obscure an underlying neoplasm. False positive reports average 6 to 10%. Patient will receive a letter notifying them of these results.
== END 2021-01-19 02:18 ==
PROVIDERS: PCP Nurse Practitioner Family; Visit Provider Nurse Practitioner Family
DX: R92.8 Other abnormal and inconclusive findings on diagnostic imaging of breast (principal); R92.0 Mammographic microcalcification found on diagnostic imaging of breast
CPT/HCPCS: 77063; 77067

== ENCOUNTER 2021-01-21 12:35 | Emergency (ER) | payer MEDICARE, MEDICAID, SELFPAY ==
[2021-01-21 12:38] VITALS: BP 134/70; PULSE 93; RESP 18; TEMP 36.5; O2SAT 98
--- NOTE | 2021-01-21 12:58 | W.ED.GENAD ---
Discharge Plan Disposition Patient Disposition: HOME Condition: Stable Discharge Details Clinical Impression: Itching Primary Care Provider: Deirdre Faustin ED Provider: Fanny Acevedo Home Meds and New Rx's Prescriptions: No Action lamotrigine [Lamictal] 200 MG tablet 200 mg PO DAILY RF: 0 polyethylene glycol 3350 [Miralax] 17 GM powder in packet 17 g PO DAILY Qty: 255 RF: 0 clozapine [Clozaril] 100 MG tablet 400 mg PO DAILY RF: 0 levothyroxine [Levoxyl] 75 MCG tablet 75 mcg PO DAILY RF: 0 Toviaz 4 MG tablet extended release 24 hr 8 mg PO DAILY RF: 0 multivitamin 1 EACH capsule 1 ea PO DAILY RF: 0 fludrocortisone 0.1 MG tablet 0.1 mg PO DAILY RF: 0 tolterodine 4 mg capsule,extended release 24hr 4 mg PO DAILY RF: 0 Discharge Instructions Instructions: Triamcinolone (On the skin), Itchy Skin (ED) Additional Instructions: May take Claritin every day while symptoms persist which she can obtain [id number]. You were given a dose here in the department today. Apply the cream 3 times a day for the next 5 days as needed for itching. Do not use longer than 7 days. Please follow-up with window glass cutter off if symptoms persist. Follow up with primary care provider in 3-5 days. Return to ED sooner if any worsening or concerns. Increase oral fluids. Referrals: Deidrre Faustin [Primary Care Provider] - 3 days Medical Decision Making 65-year-old female presents to the ER chief complaint of upper back itching and chest and shoulders which began on Saturday. She denies any known source. She was seen by window glass cutter off last week had a couple of biopsies done which were negative. She does have multiple nevi over her full back there is a spot on the left upper trunk which has some surrounding erythema and warmth no induration no hives noted. Some excoriations from presumed scratching. No evidence at this time for cellulitis or urticaria. She does have a past medical history of schizoaffective disorder, renal insufficiency, personality disorder, Parkinson, hypothyroidism, anemia. At this time we will give a loratadine and triamcinolone topical ointment. I did discuss Benadryl or hydroxyzine with patient she did drive herself she reports that Benadryl makes her agitated and hydroxyzine causes increased sedation. Also encouraged to follow-up with PCP and window glass cutter off. Patient discharged in hemodynamically stable condition was ambulatory in department prior to discharge. This text was generated using Guided [employer] system, please disregard any oddities of phrase or misspellings. HPI General Mode of arrival: ambulatory. Date/Time Provider Initiated Documentation: 01/21/21 12:35. Limitations to Documentation: no limitations. Information obtained by: patient and RN notes reviewed. HPI Narrative: 65-year-old female presents to the ER chief complaint of upper back itching and chest and shoulders which began on Saturday. She denies any known source. She was seen by window glass cutter off last week had a couple of biopsies done which were negative. She denies any trouble breathing, wheezing, fever or any other associated symptoms. She does have a past medical history of schizoaffective disorder, Parkinson's, hypothyroidism, overactive bladder, diverticulosis. Related Data Home Medications Medication Instructions Recorded Confirmed clozapine [Clozaril] 400 mg PO DAILY tab-cap 08/19/17 01/21/21 lamotrigine [Lamictal] 200 mg PO DAILY tab-cap 08/19/17 01/21/21 levothyroxine [Levoxyl] 75 mcg PO DAILY tab-cap 08/19/17 01/21/21 polyethylene glycol 3350 [Miralax] 17 g PO DAILY #255 gm 08/19/17 01/21/21 Toviaz 8 mg PO DAILY 11/20/17 01/21/21 fludrocortisone 0.1 mg PO DAILY 11/20/17 01/21/21 multivitamin 1 ea PO DAILY 11/20/17 01/21/21 tolterodine 4 mg PO DAILY 01/21/21 01/21/21 Allergies Allergy/AdvReac Type Severity Reaction Status Date / Time mirabegron [From Myrbetriq] Allergy Unverified 01/21/21 12:46 General Stated Complaint: Allergic AMISHA: 3 Review of Systems All systems reviewed & are unremarkable except as noted in HPI and below Integumentary/Breasts Skin/Breast: Reports as per HPI and Reports pruritus [facility] Medical History Anemia Atypical chest pain Back pain Benign neoplasm of skin of trunk Colon atonic Conjunctivitis Diverticulosis Dizziness Elevated serum creatinine Glucose intolerance Hair loss History of tobacco use Hypothyroidism Movement disorder Neck pain Orthostatic hypotension due to Parkinson's disease Overactive bladder Parkinsonism Personality disorder Redundant colon Renal insufficiency Schizoaffective disorder Seasonal allergies Tachycardia Surgical History Colonoscopy - IV Sedation 2005- not completed due to incomplete prep Colonoscopy - MAC (11/25/17) Social History Smoking/Tobacco Use Status: Former Tobacco Use Smoking risk assessment performed?: Yes Alcohol Intake: current Alcohol Intake frequency: 0-2 drinks per day Drug use: Never Do you feel safe at home: Yes Do you feel safe in your relationship?: Yes Exam Skin General skin exam: crusts, excoriation and other (Multiple Nevi) Rashes: other (Mild erythema, presumed from scratching, small excoriations. No cellulitis) Wounds: no wounds Full body images: 1. Dry crusty lesion, flesh colored, with surrounding mild erythema and superficial excoriations. Course Vital Signs Vital signs: Vital Signs Temperature 36.5 C 01/21/21 12:38 Pulse 93 H 01/21/21 12:38 Respiratory Rate 18 01/21/21 12:38 Blood Pressure 134/70 01/21/21 12:38 Pulse Oximetry 98 01/21/21 12:38 Temperature 36.5 C 01/21/21 12:38 Temperature Source Temporal Artery Scan 01/21/21 12:38 Pulse 93 H 01/21/21 12:38 Respiratory Rate 18 01/21/21 12:38 Respiratory Effort Non-Labored 01/21/21 12:44 Blood Pressure 134/70 01/21/21 12:38 Blood Pressure Position Sitting 01/21/21 12:38 Pulse Oximetry 98 01/21/21 12:38 Oxygen Delivery Method Room Air 01/21/21 12:38 Oxygen Flow Rate 0 01/21/21 12:38 Pain Level 7 01/21/21 12:38
[2021-01-21] MEDS: Loratidine 10 MG TAB PO (13:14)
[2021-01-21] MEDS: Triamcinolone 0.1% CR 15 GM TUBE TP (13:23)
== END 2021-01-21 14:04 | disposition home or self-care (01) ==
PROVIDERS: Emergency Provider Registered Nurse Emergency; PCP Nurse Practitioner Family
DX: L29.8 Other pruritus (principal)
CPT/HCPCS: 99283

== ENCOUNTER 2021-01-24 16:17 | Outpatient (REF) | payer MEDICARE, MEDICAID, SELFPAY ==
[2021-01-24 20:47] LABS: Iron 68 ug/dL (50-170); Total Iron Binding Capacity 296 ug/dL (250-450); Transferrin Sat 23 % (15-50)
[2021-01-24 21:11] LABS: ALT 45 U/L (14-59); AST 23 U/L (15-37); Albumin 4.3 g/dL (3.4-5.0); Alkaline Phosphatase 76 U/L (46-116); Bilirubin, Total 0.5 mg/dL (0.2-1.0); Ferritin 71 ng/mL (8-252); Total Protein 7.2 g/dL (6.4-8.2)
[2021-01-24 21:12] LABS: Folate > 20.0 ng/mL (8.6-20.0)
[2021-01-24 22:15] LABS: Vitamin B12 1160 pg/mL (193-986)
[2021-01-24 22:23] LABS: Bilirubin, Direct 0.1 mg/dL (0.0-0.2)
[2021-01-27 09:34] LABS: Methylmalonic Acid 0.27 nmol/mL (<=0.40)
== END 2021-01-24 16:18 | disposition home or self-care (01) ==
LOC: NCHCN 16:17
PROVIDERS: PCP Nurse Practitioner Family; Visit Provider Nurse Practitioner Family
DX: N18.30 Chronic kidney disease, stage 3 unspecified (principal); D64.9 Anemia, unspecified; L29.9 Pruritus, unspecified
CPT/HCPCS: 80076; 80186; 83090; 82607; 82728; 82746; 83540; 83550

== ENCOUNTER 2021-02-09 03:19 | Outpatient (CLI) | payer MEDICARE, MEDICAID, SELFPAY ==
[2021-02-09 16:19] LABS: Abs Immature Grans 0.02 10^3/uL (0.0-0.06); Absolute Basophil Count 0.04 10^3/uL (0.0-0.2); Absolute Lymphocyte Count 1.83 10^3/uL (1.2-3.4); Absolute Monocyte Count 0.34 10^3/uL (0.1-0.8); Absolute Neutrophil Count 3.66 10^3/uL (1.2-6.7); Basophils % 0.7; HGB 10.9 g/dL (11.2-15.7); Immature Grans % 0.3; Lymphocytes % 31.1; MCH 31.1 pg (27.0-33.0); MCHC 31.1 % (32.0-36.0); MPV 10.7 fL (8.0-11.0); Monocytes % 5.8; Neutrophils % 62.1; Nucleated RBC 0 %; Platelet Count 164 10^3/uL (130-400); RDW-SD 51.6 fL; WBC 5.89 10^3/uL (4.4-10.8)
== END 2021-02-09 03:20 | disposition home or self-care (01) ==
LOC: LBO 03:19
PROVIDERS: Psychiatry & Neurology Psychiatry; PCP Nurse Practitioner Family; Visit Provider Nurse Practitioner Family
DX: F25.0 Schizoaffective disorder, bipolar type
CPT/HCPCS: 36415; 85025

== ENCOUNTER 2021-03-08 03:16 | Outpatient (CLI) | payer MEDICARE, MEDICAID, SELFPAY ==
[2021-03-08 13:38] LABS: Abs Immature Grans 0.02 10^3/uL (0.0-0.06); Absolute Basophil Count 0.04 10^3/uL (0.0-0.2); Absolute Lymphocyte Count 1.81 10^3/uL (1.2-3.4); Absolute Monocyte Count 0.56 10^3/uL (0.1-0.8); Absolute Neutrophil Count 2.68 10^3/uL (1.2-6.7); Basophils % 0.8; HCT 36.7 % (36.0-46.0); HGB 11.7 g/dL (11.2-15.7); Immature Grans % 0.4; Lymphocytes % 35.4; MCH 31.6 pg (27.0-33.0); MCHC 31.9 % (32.0-36.0); MCV 99.2 fL (80-95); MPV 10.4 fL (8.0-11.0); Neutrophils % 52.4; Nucleated RBC 0 %; Platelet Count 153 10^3/uL (130-400); RDW 13.4 % (11.7-14.6); RDW-SD 49.4 fL; WBC 5.11 10^3/uL (4.4-10.8)
== END 2021-03-08 03:17 | disposition home or self-care (01) ==
LOC: LBO 03:16
PROVIDERS: PCP Nurse Practitioner Family; Visit Provider Psychiatry & Neurology Psychiatry
DX: F25.0 Schizoaffective disorder, bipolar type (principal); F20.9 Schizophrenia, unspecified
CPT/HCPCS: 36415; 85025

== ENCOUNTER 2021-04-04 02:36 | Outpatient (CLI) | payer MEDICARE, MEDICAID, SELFPAY ==
[2021-04-04 11:20] LABS: Abs Immature Grans 0.02 10^3/uL (0.0-0.06); Absolute Basophil Count 0.05 10^3/uL (0.0-0.2); Absolute Lymphocyte Count 2.09 10^3/uL (1.2-3.4); Absolute Monocyte Count 0.59 10^3/uL (0.1-0.8); Absolute Neutrophil Count 3.36 10^3/uL (1.2-6.7); Basophils % 0.8; HCT 37.6 % (36.0-46.0); HGB 12.2 g/dL (11.2-15.7); Immature Grans % 0.3; Lymphocytes % 34.2; MCH 32.2 pg (27.0-33.0); MCHC 32.4 % (32.0-36.0); MCV 99.2 fL (80-95); MPV 11.1 fL (8.0-11.0); Monocytes % 9.7; Nucleated RBC 0 %; Platelet Count 166 10^3/uL (130-400); RBC 3.79 10^6/uL (3.93-5.22); RDW 13.2 % (11.7-14.6); RDW-SD 48.6 fL; WBC 6.11 10^3/uL (4.4-10.8)
== END 2021-04-04 02:37 | disposition home or self-care (01) ==
LOC: LBO 02:37
PROVIDERS: Nurse Practitioner Family; PCP Nurse Practitioner Family; Visit Provider Psychiatry & Neurology Psychiatry
DX: Z51.81 Encounter for therapeutic drug level monitoring (principal); F20.0 Paranoid schizophrenia
CPT/HCPCS: 36415; 85025

== ENCOUNTER 2021-05-01 04:07 | Outpatient (CLI) | payer MEDICARE, MEDICAID, SELFPAY ==
[2021-05-01 11:18] LABS: Abs Immature Grans 0.03 10^3/uL (0.0-0.06); Absolute Basophil Count 0.04 10^3/uL (0.0-0.2); Absolute Eosinophil Count 0.12 10^3/uL (0.0-0.7); Absolute Lymphocyte Count 2.13 10^3/uL (1.2-3.4); Absolute Monocyte Count 0.38 10^3/uL (0.1-0.8); Absolute Neutrophil Count 2.82 10^3/uL (1.2-6.7); Basophils % 0.7; Eosinophils % 2.2; HCT 39.3 % (36.0-46.0); HGB 12.3 g/dL (11.2-15.7); Immature Grans % 0.5; Lymphocytes % 38.6; MCH 31.1 pg (27.0-33.0); MCHC 31.3 % (32.0-36.0); MCV 99.2 fL (80-95); MPV 10.7 fL (8.0-11.0); Monocytes % 6.9; Neutrophils % 51.1; Nucleated RBC 0 %; Platelet Count 184 10^3/uL (130-400); RBC 3.96 10^6/uL (3.93-5.22); RDW 13.5 % (11.7-14.6); RDW-SD 49.2 fL; WBC 5.52 10^3/uL (4.4-10.8)
== END 2021-05-01 04:08 | disposition home or self-care (01) ==
LOC: LBO 04:07
PROVIDERS: PCP Nurse Practitioner Family; Visit Provider Nurse Practitioner Family
DX: F25.0 Schizoaffective disorder, bipolar type (principal)
CPT/HCPCS: 36415; 85025

== ENCOUNTER 2021-05-03 18:41 | Outpatient (REF) | payer MEDICARE, MEDICAID, SELFPAY ==
[2021-05-03 21:40] LABS: Total Volume 3730 ml
[2021-05-03 22:02] LABS: Creatinine,24hr Ur 0.63 g/24hr (0.60-1.80); Creatinine,Urine 17.02 mg/dL
[2021-05-05 09:37] LABS: Calcium Urine 7.3 mg/dL (See Note); Calcium Urine 24 hr 272 mg/24hrs (100-300); Timed Urine Volume 3730 mL
== END 2021-05-03 18:42 | disposition home or self-care (01) ==
LOC: LBN 18:41
PROVIDERS: PCP Nurse Practitioner Family; Visit Provider Internal Medicine Endocrinology, Diabetes & Metabolism
DX: E21.0 Primary hyperparathyroidism (principal); M81.0 Age-related osteoporosis without current pathological fracture
CPT/HCPCS: 81050; 82340; 82570

== ENCOUNTER 2021-05-26 01:53 | Outpatient (CLI) | payer MEDICARE, MEDICAID, SELFPAY ==
[2021-05-26 14:15] LABS: Abs Immature Grans 0.02 10^3/uL (0.0-0.06); Absolute Basophil Count 0.04 10^3/uL (0.0-0.2); Absolute Lymphocyte Count 1.44 10^3/uL (1.2-3.4); Absolute Monocyte Count 0.35 10^3/uL (0.1-0.8); Absolute Neutrophil Count 3.99 10^3/uL (1.2-6.7); Basophils % 0.7; HCT 37.9 % (36.0-46.0); Immature Grans % 0.3; Lymphocytes % 24.7; MCH 31.3 pg (27.0-33.0); MCHC 31.7 % (32.0-36.0); MPV 10.9 fL (8.0-11.0); Neutrophils % 68.3; Nucleated RBC 0 %; Platelet Count 164 10^3/uL (130-400); RBC 3.83 10^6/uL (3.93-5.22); RDW 14.5 % (11.7-14.6); WBC 5.84 10^3/uL (4.4-10.8)
== END 2021-05-26 01:54 | disposition home or self-care (01) ==
PROVIDERS: PCP Nurse Practitioner Family; Visit Provider Psychiatry & Neurology Psychiatry
DX: F25.0 Schizoaffective disorder, bipolar type (principal)
CPT/HCPCS: 36415; 85025

== ENCOUNTER 2021-05-31 16:33 | Outpatient (REF) | payer MEDICARE, MEDICAID, SELFPAY | END 2021-05-31 16:34 | disposition home or self-care (01) | LOC: NCHCN 16:33 | PROVIDERS: PCP Nurse Practitioner Family; Visit Provider Nurse Practitioner Family | DX: Z79.899 Other long term (current) drug therapy (principal); F25.0 Schizoaffective disorder, bipolar type | CPT/HCPCS: 87086 ==

== ENCOUNTER 2021-06-22 02:33 | Outpatient (CLI) | payer MEDICARE, MEDICAID, SELFPAY ==
[2021-06-22 12:44] LABS: Abs Immature Grans 0.02 10^3/uL (0.0-0.06); Absolute Basophil Count 0.04 10^3/uL (0.0-0.2); Absolute Eosinophil Count 0.12 10^3/uL (0.0-0.7); Absolute Lymphocyte Count 2.11 10^3/uL (1.2-3.4); Absolute Monocyte Count 0.55 10^3/uL (0.1-0.8); Absolute Neutrophil Count 3.65 10^3/uL (1.2-6.7); Basophils % 0.6; Eosinophils % 1.8; HCT 37.4 % (36.0-46.0); HGB 11.8 g/dL (11.2-15.7); Immature Grans % 0.3; Lymphocytes % 32.5; MCH 31.1 pg (27.0-33.0); MCHC 31.6 % (32.0-36.0); MCV 98.7 fL (80-95); MPV 10.5 fL (8.0-11.0); Monocytes % 8.5; Neutrophils % 56.3; Nucleated RBC 0 %; Platelet Count 177 10^3/uL (130-400); RBC 3.79 10^6/uL (3.93-5.22); RDW-SD 50.9 fL; WBC 6.49 10^3/uL (4.4-10.8)
== END 2021-06-22 02:34 | disposition home or self-care (01) ==
LOC: LBO 02:33
PROVIDERS: PCP Nurse Practitioner Family; Visit Provider Psychiatry & Neurology Psychiatry
DX: F25.0 Schizoaffective disorder, bipolar type
CPT/HCPCS: 36415; 85027; 85025

== ENCOUNTER 2021-07-18 18:00 | Outpatient (REF) | payer MEDICARE, MEDICAID, SELFPAY | END 2021-07-18 18:01 | disposition home or self-care (01) | LOC: LBN 18:00 | PROVIDERS: PCP Nurse Practitioner Family; Visit Provider Student in an Organized Health Care Education/Training Program | DX: R39.9 Unspecified symptoms and signs involving the genitourinary system (principal) | CPT/HCPCS: 87086 ==

== ENCOUNTER 2021-07-18 18:30 | Outpatient (REF) | payer MEDICARE, MEDICAID, SELFPAY ==
[2021-07-18 13:08] LABS: Anion Gap 6.5 mmol/L (3-11); BUN 26 mg/dL (7-18); CO2 30.5 mmol/L (21.0-32.0); CREATININE 1.6 mg/dL (0.55-1.02); Calcium 9.7 mg/dL (8.5-10.1); Calculated LDL 105 mg/dL (<100); Chloride 104 mmol/L (98-107); Cholesterol 213 mg/dL (<200); Estimated GFR 32.15 (mL/min/1.73m2); Glucose 166 mg/dL (74-106); HDL Cholesterol 83 mg/dL (40-60); Potassium 4.1 mmol/L (3.5-5.1); Sodium 141 mmol/L (136-145); TSH 2.71 uIU/mL (0.36-3.74); Triglyceride 126 mg/dL (<150)
[2021-07-18 13:24] LABS: FREE T4 0.84 ng/dL (0.76-1.46)
== END 2021-07-18 18:31 | disposition home or self-care (01) ==
LOC: NCHCN 18:30
PROVIDERS: PCP Nurse Practitioner Family; Visit Provider Nurse Practitioner Family
DX: E78.5 Hyperlipidemia, unspecified (principal); E21.3 Hyperparathyroidism, unspecified; Z51.81 Encounter for therapeutic drug level monitoring
CPT/HCPCS: 80048; 80061; 84439; 84443

== ENCOUNTER 2021-07-19 02:51 | Outpatient (CLI) | payer MEDICARE, MEDICAID, SELFPAY ==
[2021-07-19 12:14] LABS: HCT 35.8 % (36.0-46.0); HGB 11.4 g/dL (11.2-15.7); MCH 31.4 pg (27.0-33.0); MCHC 31.8 % (32.0-36.0); MCV 98.6 fL (80-95); MPV 10.4 fL (8.0-11.0); Platelet Count 190 10^3/uL (130-400); RBC 3.63 10^6/uL (3.93-5.22); RDW 14.3 % (11.7-14.6); RDW-SD 52.1 fL; WBC 5.43 10^3/uL (4.4-10.8)
[2021-07-19 13:28] LABS: Abs Immature Grans 0.01 10^3/uL (0.0-0.06); Absolute Basophil Count 0.04 10^3/uL (0.0-0.2); Absolute Lymphocyte Count 2.25 10^3/uL (1.2-3.4); Absolute Monocyte Count 0.46 10^3/uL (0.1-0.8); Absolute Neutrophil Count 2.68 10^3/uL (1.2-6.7); Basophils % 0.7; Immature Grans % 0.2; Lymphocytes % 41.4; Monocytes % 8.5; Neutrophils % 49.2
== END 2021-07-19 02:52 | disposition home or self-care (01) ==
LOC: LBO 02:52
PROVIDERS: Nurse Practitioner Family; PCP Nurse Practitioner Family; Visit Provider Psychiatry & Neurology Psychiatry
DX: Z51.81 Encounter for therapeutic drug level monitoring (principal)
CPT/HCPCS: 36415; 85027; 85007

== ENCOUNTER 2021-08-15 03:19 | Outpatient (CLI) | payer MEDICARE, MEDICAID, SELFPAY ==
[2021-08-15 14:10] LABS: Abs Immature Grans 0.01 10^3/uL (0.0-0.06); Absolute Basophil Count 0.05 10^3/uL (0.0-0.2); Absolute Lymphocyte Count 2.03 10^3/uL (1.2-3.4); Absolute Monocyte Count 0.47 10^3/uL (0.1-0.8); Absolute Neutrophil Count 2.31 10^3/uL (1.2-6.7); HCT 35.1 % (36.0-46.0); Immature Grans % 0.2; Lymphocytes % 41.7; MCH 31.5 pg (27.0-33.0); MCHC 31.3 % (32.0-36.0); MCV 100.6 fL (80-95); MPV 10.7 fL (8.0-11.0); Monocytes % 9.7; Neutrophils % 47.4; Nucleated RBC 0 %; Platelet Count 164 10^3/uL (130-400); RBC 3.49 10^6/uL (3.93-5.22); RDW 13.7 % (11.7-14.6); RDW-SD 50.9 fL; WBC 4.87 10^3/uL (4.4-10.8)
== END 2021-08-15 03:20 | disposition home or self-care (01) ==
LOC: LBO 03:19
PROVIDERS: PCP Nurse Practitioner Family; Visit Provider Nurse Practitioner Family
DX: F20.0 Paranoid schizophrenia (principal); Z79.899 Other long term (current) drug therapy
CPT/HCPCS: 36415; 85025

== ENCOUNTER 2021-09-13 01:51 | Outpatient (CLI) | payer MEDICARE, MEDICAID, SELFPAY ==
[2021-09-13 12:28] LABS: Abs Immature Grans 0.02 10^3/uL (0.0-0.06); Absolute Basophil Count 0.05 10^3/uL (0.0-0.2); Absolute Eosinophil Count 0.11 10^3/uL (0.0-0.7); Absolute Lymphocyte Count 2.71 10^3/uL (1.2-3.4); Absolute Monocyte Count 0.53 10^3/uL (0.1-0.8); Absolute Neutrophil Count 3.06 10^3/uL (1.2-6.7); Basophils % 0.8; Eosinophils % 1.7; HCT 36.4 % (36.0-46.0); HGB 11.6 g/dL (11.2-15.7); Immature Grans % 0.3; Lymphocytes % 41.8; MCH 31.8 pg (27.0-33.0); MCHC 31.9 % (32.0-36.0); MCV 100 fL (80-95); MPV 10.8 fL (8.0-11.0); Monocytes % 8.2; Neutrophils % 47.2; Platelet Count 171 10^3/uL (130-400); RBC 3.65 10^6/uL (3.93-5.22); RDW 13.5 % (11.7-14.6); RDW-SD 50.3 fL; WBC 6.48 10^3/uL (4.4-10.8)
== END 2021-09-13 01:52 | disposition home or self-care (01) ==
LOC: LBO 01:51
PROVIDERS: PCP Nurse Practitioner Family; Visit Provider Nurse Practitioner Family
DX: F20.0 Paranoid schizophrenia (principal); Z79.899 Other long term (current) drug therapy
CPT/HCPCS: 36415; 85025

== ENCOUNTER 2021-10-10 15:46 | Outpatient (CLI) | payer MEDICARE, MEDICAID, SELFPAY ==
[2021-10-10 13:35] LABS: Abs Immature Grans 0.02 10^3/uL (0.0-0.06); Absolute Basophil Count 0.05 10^3/uL (0.0-0.2); Absolute Lymphocyte Count 2.86 10^3/uL (1.2-3.4); Absolute Monocyte Count 0.56 10^3/uL (0.1-0.8); Absolute Neutrophil Count 3.62 10^3/uL (1.2-6.7); Basophils % 0.7; HCT 35.8 % (36.0-46.0); HGB 11.6 g/dL (11.2-15.7); Immature Grans % 0.3; Lymphocytes % 40.2; MCHC 32.4 % (32.0-36.0); MCV 99 fL (80-95); MPV 10.5 fL (8.0-11.0); Monocytes % 7.9; Neutrophils % 50.9; Platelet Count 203 10^3/uL (130-400); RBC 3.63 10^6/uL (3.93-5.22); RDW-SD 51.4 fL; WBC 7.11 10^3/uL (4.4-10.8)
== END 2021-10-10 15:47 | disposition home or self-care (01) ==
LOC: LBO 15:50
PROVIDERS: PCP Nurse Practitioner Family; Visit Provider Nurse Practitioner Family
DX: F20.0 Paranoid schizophrenia (principal); Z79.899 Other long term (current) drug therapy
CPT/HCPCS: 36415; 85025

== ENCOUNTER 2021-11-03 03:13 | Outpatient (CLI) | payer MEDICARE, MEDICAID, SELFPAY ==
[2021-11-03 14:07] LABS: Abs Immature Grans 0.04 10^3/uL (0.0-0.06); Absolute Basophil Count 0.05 10^3/uL (0.0-0.2); Absolute Lymphocyte Count 2.12 10^3/uL (1.2-3.4); Absolute Monocyte Count 0.67 10^3/uL (0.1-0.8); Absolute Neutrophil Count 5.26 10^3/uL (1.2-6.7); Basophils % 0.6; HCT 35.4 % (36.0-46.0); HGB 11.5 g/dL (11.2-15.7); Immature Grans % 0.5; MCH 32.3 pg (27.0-33.0); MCHC 32.5 % (32.0-36.0); MCV 99 fL (80-95); MPV 10.2 fL (8.0-11.0); Monocytes % 8.2; Neutrophils % 64.7; Platelet Count 199 10^3/uL (130-400); RBC 3.56 10^6/uL (3.93-5.22); RDW 13.5 % (11.7-14.6); RDW-SD 49.2 fL; WBC 8.14 10^3/uL (4.4-10.8)
== END 2021-11-03 03:14 | disposition home or self-care (01) ==
LOC: LBO 03:13
PROVIDERS: PCP Nurse Practitioner Family; Visit Provider Nurse Practitioner Family
DX: F20.0 Paranoid schizophrenia (principal); Z79.899 Other long term (current) drug therapy
CPT/HCPCS: 36415; 85025

== ENCOUNTER 2021-11-13 15:27 | Outpatient (REF) | payer MEDICARE, MEDICAID, SELFPAY ==
[2021-11-13 20:18] LABS: ALT 30 U/L (14-59); AST 21 U/L (15-37); Alkaline Phosphatase 80 U/L (46-116); Anion Gap 9.9 mmol/L (3-11); BUN 25 mg/dL (7-18); Bilirubin, Total 0.4 mg/dL (0.2-1.0); CO2 30.1 mmol/L (21.0-32.0); CREATININE 1.4 mg/dL (0.55-1.02); Chloride 105 mmol/L (98-107); Estimated GFR 37.51 (mL/min/1.73m2); FREE T4 0.85 ng/dL (0.76-1.46); Glucose 99 mg/dL (74-106); Sodium 145 mmol/L (136-145); Total Protein 7.3 g/dL (6.4-8.2)
[2021-11-13 20:36] LABS: Calcium 6.1 mg/dL (8.5-10.1)
[2021-11-14 10:11] LABS: Magnesium 2.3 mg/dL (1.8-2.4)
== END 2021-11-13 15:28 | disposition home or self-care (01) ==
LOC: NCHCN 15:27
PROVIDERS: PCP Nurse Practitioner Family; Visit Provider Nurse Practitioner Family
DX: E04.1 Nontoxic single thyroid nodule (principal); R79.89 Other specified abnormal findings of blood chemistry
CPT/HCPCS: 80053; 83735; 84439; 84443

== ENCOUNTER 2021-11-15 15:32 | Outpatient (REF) | payer MEDICARE, MEDICAID, SELFPAY ==
[2021-11-15 16:05] LABS: ALT 28 U/L (14-59); AST 18 U/L (15-37); Albumin 3.8 g/dL (3.4-5.0); Alkaline Phosphatase 77 U/L (46-116); BUN 25 mg/dL (7-18); Bilirubin, Total 0.6 mg/dL (0.2-1.0); CREATININE 1.6 mg/dL (0.55-1.02); Calcium 7.1 mg/dL (8.5-10.1); Chloride 101 mmol/L (98-107); Estimated GFR 32.15 (mL/min/1.73m2); Glucose 231 mg/dL (74-106); Sodium 140 mmol/L (136-145)
== END 2021-11-15 15:33 | disposition home or self-care (01) ==
LOC: NCHCN 15:32
PROVIDERS: PCP Nurse Practitioner Family; Visit Provider Nurse Practitioner Family
DX: E04.1 Nontoxic single thyroid nodule (principal)
CPT/HCPCS: 80053

== ENCOUNTER 2021-11-29 02:50 | Outpatient (CLI) | payer MEDICARE, MEDICAID, SELFPAY ==
[2021-11-29 11:39] LABS: Abs Immature Grans 0.02 10^3/uL (0.0-0.06); Absolute Basophil Count 0.04 10^3/uL (0.0-0.2); Absolute Lymphocyte Count 1.85 10^3/uL (1.2-3.4); Absolute Monocyte Count 0.49 10^3/uL (0.1-0.8); Absolute Neutrophil Count 3.59 10^3/uL (1.2-6.7); Basophils % 0.7; HCT 36.8 % (36.0-46.0); HGB 11.8 g/dL (11.2-15.7); Immature Grans % 0.3; Lymphocytes % 30.9; MCH 31.8 pg (27.0-33.0); MCHC 32.1 % (32.0-36.0); MCV 99 fL (80-95); Monocytes % 8.2; Neutrophils % 59.9; Platelet Count 181 10^3/uL (130-400); RBC 3.71 10^6/uL (3.93-5.22); RDW 12.8 % (11.7-14.6); WBC 5.99 10^3/uL (4.4-10.8)
[2021-12-01 01:41] LABS: Clozapine 548 ng/mL (350-600); Clozapine+Norclozapine Total 1104 ng/mL; Norclozapine 556 ng/mL
== END 2021-11-29 02:51 | disposition home or self-care (01) ==
LOC: LBO 02:50
PROVIDERS: PCP Nurse Practitioner Family; Visit Provider Nurse Practitioner Family
DX: F43.10 Post-traumatic stress disorder, unspecified (principal); Z51.81 Encounter for therapeutic drug level monitoring
CPT/HCPCS: 36415; 80159; 85025

== ENCOUNTER 2021-12-04 14:02 | Outpatient (REF) | payer MEDICARE, MEDICAID, SELFPAY ==
[2021-12-04 16:24] LABS: Calcium 7.7 mg/dL (8.5-10.1)
== END 2021-12-04 14:03 | disposition home or self-care (01) ==
LOC: NCHCN 14:02
PROVIDERS: PCP Nurse Practitioner Family; Visit Provider Nurse Practitioner Family
DX: E83.51 Hypocalcemia (principal)
CPT/HCPCS: 82310

== ENCOUNTER 2021-12-25 03:46 | Outpatient (CLI) | payer MEDICARE, MEDICAID, SELFPAY ==
[2021-12-25 12:21] LABS: Abs Immature Grans 0.02 10^3/uL (0.0-0.06); Absolute Basophil Count 0.04 10^3/uL (0.0-0.2); Absolute Lymphocyte Count 2.36 10^3/uL (1.2-3.4); Absolute Monocyte Count 0.53 10^3/uL (0.1-0.8); Absolute Neutrophil Count 3.57 10^3/uL (1.2-6.7); Basophils % 0.6; HCT 35.7 % (36.0-46.0); HGB 11.5 g/dL (11.2-15.7); Immature Grans % 0.3; Lymphocytes % 36.2; MCH 31.5 pg (27.0-33.0); MCHC 32.2 % (32.0-36.0); MCV 98 fL (80-95); MPV 10.2 fL (8.0-11.0); Monocytes % 8.1; Neutrophils % 54.8; Platelet Count 188 10^3/uL (130-400); RBC 3.65 10^6/uL (3.93-5.22); RDW 13.2 % (11.7-14.6); RDW-SD 47.4 fL; WBC 6.52 10^3/uL (4.4-10.8)
[2021-12-26 23:20] LABS: Clozapine 397 ng/mL (350-600); Clozapine+Norclozapine Total 805 ng/mL; Norclozapine 408 ng/mL
== END 2021-12-25 03:47 | disposition home or self-care (01) ==
LOC: LBO 03:46
PROVIDERS: PCP Nurse Practitioner Family; Visit Provider Nurse Practitioner Family
DX: Z51.81 Encounter for therapeutic drug level monitoring (principal); F43.10 Post-traumatic stress disorder, unspecified
CPT/HCPCS: 36415; 80159; 85025

== ENCOUNTER 2022-01-15 15:44 | Outpatient (REF) | payer MEDICARE, MEDICAID, SELFPAY ==
[2022-01-15 19:21] LABS: Calcium 7.6 mg/dL (8.5-10.1)
== END 2022-01-15 15:45 | disposition home or self-care (01) ==
LOC: NCHCN 15:44
PROVIDERS: PCP Nurse Practitioner Family; Visit Provider Nurse Practitioner Family
DX: E83.51 Hypocalcemia (principal)
CPT/HCPCS: 82310

== ENCOUNTER 2022-01-22 03:21 | Outpatient (CLI) | payer MEDICARE, MEDICAID, SELFPAY ==
[2022-01-22 13:26] LABS: Abs Immature Grans 0.02 10^3/uL (0.0-0.06); Absolute Basophil Count 0.03 10^3/uL (0.0-0.2); Absolute Lymphocyte Count 2.36 10^3/uL (1.2-3.4); Absolute Monocyte Count 0.55 10^3/uL (0.1-0.8); Absolute Neutrophil Count 3.48 10^3/uL (1.2-6.7); Basophils % 0.5; HCT 36.6 % (36.0-46.0); HGB 12.2 g/dL (11.2-15.7); Immature Grans % 0.3; Lymphocytes % 36.6; MCH 32.4 pg (27.0-33.0); MCHC 33.3 % (32.0-36.0); MCV 97 fL (80-95); MPV 10.8 fL (8.0-11.0); Monocytes % 8.5; Neutrophils % 54.1; Platelet Count 203 10^3/uL (130-400); RBC 3.77 10^6/uL (3.93-5.22); RDW 13.4 % (11.7-14.6); RDW-SD 48.2 fL; WBC 6.44 10^3/uL (4.4-10.8)
[2022-01-24 07:55] LABS: Clozapine 327 ng/mL (350-600); Clozapine+Norclozapine Total 713 ng/mL; Norclozapine 386 ng/mL
== END 2022-01-22 03:22 | disposition home or self-care (01) ==
LOC: LBO 03:21
PROVIDERS: PCP Nurse Practitioner Family; Visit Provider Nurse Practitioner Family
DX: F43.10 Post-traumatic stress disorder, unspecified (principal); Z51.81 Encounter for therapeutic drug level monitoring
CPT/HCPCS: 36415; 80159; 85025

== ENCOUNTER 2022-02-16 02:02 | Outpatient (CLI) | payer MEDICARE, MEDICAID, SELFPAY ==
[2022-02-16 14:32] LABS: Abs Immature Grans 0.03 10^3/uL (0.0-0.06); Absolute Basophil Count 0.06 10^3/uL (0.0-0.2); Absolute Lymphocyte Count 3.04 10^3/uL (1.2-3.4); Absolute Monocyte Count 0.55 10^3/uL (0.1-0.8); Absolute Neutrophil Count 4.04 10^3/uL (1.2-6.7); Basophils % 0.8; HCT 35.8 % (36.0-46.0); HGB 11.7 g/dL (11.2-15.7); Immature Grans % 0.4; Lymphocytes % 39.4; MCHC 32.7 % (32.0-36.0); MCV 98 fL (80-95); MPV 10.5 fL (8.0-11.0); Monocytes % 7.1; Neutrophils % 52.3; Platelet Count 183 10^3/uL (130-400); RBC 3.66 10^6/uL (3.93-5.22); RDW 13.1 % (11.7-14.6); RDW-SD 47.2 fL; WBC 7.72 10^3/uL (4.4-10.8)
== END 2022-02-16 02:03 | disposition home or self-care (01) ==
LOC: LBO 02:03
PROVIDERS: PCP Nurse Practitioner Family; Visit Provider Nurse Practitioner Family
DX: Z51.81 Encounter for therapeutic drug level monitoring (principal)
CPT/HCPCS: 36415; 85025

== ENCOUNTER 2022-02-19 18:34 | Outpatient (REF) | payer MEDICARE, MEDICAID, SELFPAY ==
[2022-02-19 16:45] LABS: Calcium 7.6 mg/dL (8.5-10.1)
== END 2022-02-19 18:35 | disposition home or self-care (01) ==
LOC: NCHCN 18:34
PROVIDERS: PCP Nurse Practitioner Family; Visit Provider Nurse Practitioner Family
DX: E83.51 Hypocalcemia (principal)
CPT/HCPCS: 82310